=== PATIENT | male | born 1965 | race Hispanic/Latino ===

== ENCOUNTER 2017-11-16 22:17 | Inpatient (IN) | payer OTHER ==
[~2017-11-16] VITALS: Ht 185.4 cm; Wt 132.4 kg
[~2017-11-16 22:17] MED LIST: ALPR2TAB7 PO; ATOR10 PO; CARB100T52 PO; CELE100C PO; EXEN2PEN SQ; FENO145T37 PO; FENT75PAT TD; FLUO10CA21 PO; GABA-318 PO; HYDR-4060 PO; INSU100V12 SQ; LEVO500T2 PO; LISI-613 PO; METF10004 PO
[2017-11-16 22:56] LABS: BASOPHILS % (AUTO) 0.7 % (0.0-5.0); EOSINOPHILS % (AUTO) 0.1 % (0.0-8.0); HEMATOCRIT 38.6 % (42-54); LYMPHOCYTES % (AUTO) 17.5 % (21.0-51.0); MEAN CORPUSCULAR HGB CONC 34.8 g/dL (32.0-36.0); MONOCYTES % (AUTO) 8.1 % (3.0-13.0); NEUTROPHILS % (AUTO) 73.6 % (40.0-77.0); PLATELET COUNT (AUTO) 213 K/uL (130-400); RED BLOOD CELL COUNT(AUTO) 4.49 MIL/uL (4.50-6.20); RED CELL DISTRIBUTION WIDTH 13.3 % (11.0-15.5); WHITE BLOOD COUNT (AUTO) 15.4 K/uL (4.8-10.8)
[2017-11-16 23:01] LABS: APPEARANCE,URINE Clear (CLEAR); BILIRUBIN,URINE Negative (NEGATIVE); COLOR,URINE Yellow (YELLOW); GLUCOSE, URINE (UA) >=1000 mg/dL (NEGATIVE); KETONES,URINE Negative (NEGATIVE); LEUKOCYTE ESTERASE ,URINE Negative (NEGATIVE); NITRATE,URINE Negative (NEGATIVE); OCCULT BLOOD,URINE Negative (NEGATIVE); PROTEIN,URINE Negative (NEGATIVE)
[2017-11-16] MEDS ORDERED: SODIUM CHLORIDE 0.9% 1000ML 1,000 ML IV ONE (23:06)
[2017-11-16 23:11] LABS: BACTERIA,URINE None Seen /HPF (None Seen); MUCUS,URINE Few LPF (None Seen); RBC,URINE None Seen /HPF (0-1); SQUAMOUS EPITHELIAL CELL,UR Few /HPF (0-2); WBC,URINE None Seen /HPF (0-1)
[2017-11-16 23:22] LABS: ALBUMIN 3.4 g/dL (3.5-5.0); BILIRUBIN,TOTAL 0.9 mg/dL (0.2-1.0); CREATINE KINASE MB 0.8 ng/mL (0.5-3.6); CREATININE 1.2 mg/dL (0.5-1.5); CRP QUANTITATIVE 155.1 mg/L (0.00-9.0); POTASSIUM 4.3 mmol/L (3.5-5.1); TOTAL PROTEIN, SERUM 7.9 g/dL (6.0-8.3)
[2017-11-17 00:02] LABS: ERYTHROCYTE SEDIMENTATION RATE 31 MM/HR (0-15)
[2017-11-17] MEDS ORDERED: LEVOFLOXACIN 500 MG TABLET ONE (00:19)
[2017-11-17] MEDS ORDERED: ZOSYN 3.375GM+NS 50ML 50 ML IV ONE (00:20)
[2017-11-17] MEDS ORDERED: INSULIN HUMULIN R 100 UNIT/ML 3ML ONE (00:22)
[2017-11-17] MEDS ORDERED: POTASSIUM CHLORIDE 20MEQ/100ML 100 ML IV PRN (01:45)
[2017-11-17] MEDS ORDERED: POTASSIUM CHLORIDE 10% ELIXIR 20 MEQ/15 ML UDCUP PO PRN (01:45)
[2017-11-17] MEDS ORDERED: LIDOCAINE HCL-MPF 1% 2ML VIAL IVP PRN (01:45)
[2017-11-17] MEDS ORDERED: ACETAMINOPHEN-CODEINE 300/30MG TAB PO PRN (01:45)
[2017-11-17] MEDS ORDERED: POTASSIUM CHLORIDE 20 MEQ ERTAB PO PRN (01:45)
[2017-11-17] MEDS ORDERED: HYDRALAZINE HCL 20 MG/ML VIAL IV PRN (01:45)
[2017-11-17] MEDS ORDERED: LACTULOSE 20 GM/30 ML UDCUP PO PRN (01:45)
[2017-11-17] MEDS ORDERED: DEXTROSE 50%-WATER 50 ML DISP.SYRIN IV PRN (01:45)
[2017-11-17] MEDS ORDERED: DiphenhydrAMINE HCL 50 MG/ML VIAL IV PRN (01:45)
[2017-11-17] MEDS ORDERED: MORPHINE SULFATE 2 MG/ML 1ML SYG IV PRN (01:45)
[2017-11-17] MEDS ORDERED: GLUCAGON 1MG KIT 1 MG ML IM PRN (01:45)
[2017-11-17 03:17] VITALS: BP 143/92
[2017-11-17] MEDS: SODIUM CHLORIDE 0.9% 1000ML 1,000 ML IV SCH ×3 (04:03→18:29)
[2017-11-17] MEDS ORDERED: ACETAMINOPHEN 325 MG TAB PO PRN ×2 (04:30)
[2017-11-17] MEDS ORDERED: CLONIDINE HCL 0.1 MG TABLET PO PRN (04:30)
[2017-11-17] MEDS ORDERED: ZOSYN 3.375GM+NS 50ML 50 ML IV SCH (05:00)
[2017-11-17 06:43] LABS: BASOPHILS % (AUTO) 0.6 % (0.0-5.0); EOSINOPHILS % (AUTO) 0.5 % (0.0-8.0); HEMATOCRIT 37.9 % (42-54); LYMPHOCYTES % (AUTO) 24.6 % (21.0-51.0); MEAN CORPUSCULAR HEMOGLOBIN 29.9 pg (27.0-33.0); MEAN CORPUSCULAR HGB CONC 34.9 g/dL (32.0-36.0); MEAN CORPUSCULAR VOLUME 85.6 fL (79-99); MONOCYTES % (AUTO) 8.5 % (3.0-13.0); NEUTROPHILS % (AUTO) 65.8 % (40.0-77.0); PLATELET COUNT (AUTO) 173 K/uL (130-400); RED BLOOD CELL COUNT(AUTO) 4.43 MIL/uL (4.50-6.20); RED CELL DISTRIBUTION WIDTH 12.9 % (11.0-15.5); WHITE BLOOD COUNT (AUTO) 10.5 K/uL (4.8-10.8)
[2017-11-17 06:44] LABS: CREATININE 0.9 mg/dL (0.5-1.5); POTASSIUM 4.1 mmol/L (3.5-5.1)
[2017-11-17 07:09] LABS: HEMOGLOBIN A1C 11.5 % (4.0-6.0)
[2017-11-17] MEDS: INSULIN HUMULIN R 100 UNIT/ML 3ML SQ SCH ×4 (07:48→21:15)
[2017-11-17 08:00] VITALS: BP 108/66
[2017-11-17] MEDS ORDERED: ENOXAPARIN SODIUM 30 MG/0.3 ML SQ SCH (09:00)
[2017-11-17] MEDS: FAMOTIDINE 20MG TAB 20 MG TAB PO SCH ×2 (09:53→21:17)
[2017-11-17] MEDS: ZOSYN 3.375GM+NS 50ML 50 ML IV SCH ×3 (10:00→21:17)
[2017-11-17] MEDS: INSULIN GLARGINE 100 UNITS/ML 10 ML VIAL SQ SCH ×2 (10:03→21:07)
[2017-11-17 11:26] VITALS: BP 102/70
[2017-11-17 16:32] VITALS: BP 98/53
[2017-11-17] MEDS: ACETAMINOPHEN-CODEINE 300/30MG TAB PO PRN (17:06)
[2017-11-17 19:30] VITALS: BP 102/57
[2017-11-17 23:50] VITALS: BP 116/61
[2017-11-18 03:40] VITALS: BP 109/71
[2017-11-18 04:04] LABS: BASOPHILS % (AUTO) 0.6 % (0.0-5.0); EOSINOPHILS % (AUTO) 2.1 % (0.0-8.0); HEMATOCRIT 34.5 % (42-54); LYMPHOCYTES % (AUTO) 27.6 % (21.0-51.0); MEAN CORPUSCULAR HEMOGLOBIN 31.5 pg (27.0-33.0); MEAN CORPUSCULAR HGB CONC 36.8 g/dL (32.0-36.0); MEAN CORPUSCULAR VOLUME 85.6 fL (79-99); MONOCYTES % (AUTO) 8.6 % (3.0-13.0); NEUTROPHILS % (AUTO) 61.1 % (40.0-77.0); PLATELET COUNT (AUTO) 173 K/uL (130-400); RED BLOOD CELL COUNT(AUTO) 4.03 MIL/uL (4.50-6.20); RED CELL DISTRIBUTION WIDTH 13.4 % (11.0-15.5); WHITE BLOOD COUNT (AUTO) 6.8 K/uL (4.8-10.8)
[2017-11-18 04:21] LABS: CREATININE 0.8 mg/dL (0.5-1.5)
[2017-11-18] MEDS: ZOSYN 3.375GM+NS 50ML 50 ML IV SCH ×3 (04:26→20:59)
[2017-11-18] MEDS: INSULIN HUMULIN R 100 UNIT/ML 3ML SQ SCH ×4 (06:53→20:57)
[2017-11-18 08:00] VITALS: BP 150/86
[2017-11-18] MEDS ORDERED: MORPHINE SULFATE 4 MG/1ML SYG ONE (08:01)
[2017-11-18] MEDS: INSULIN GLARGINE 100 UNITS/ML 10 ML VIAL SQ SCH ×2 (08:06→20:58)
[2017-11-18] MEDS ORDERED: KETOROLAC TROMETHAMINE 15MG/ML IV PRN (09:00)
[2017-11-18] MEDS: FAMOTIDINE 20MG TAB 20 MG TAB PO SCH ×2 (10:17→20:58)
[2017-11-18] MEDS: ENOXAPARIN SODIUM 40 MG/0.4 ML SYRINGE SQ SCH (10:17)
[2017-11-18 11:40] VITALS: BP 111/60
[2017-11-18 16:00] VITALS: BP 114/83
[2017-11-18] MEDS: ACETAMINOPHEN-CODEINE 300/30MG TAB PO PRN (17:10)
[2017-11-18] MEDS ORDERED: MECL-111 PO (19:40)
[2017-11-18] MEDS ORDERED: LISI-617 PO (19:40)
[2017-11-18] MEDS ORDERED: FENT75PAT TD (19:40)
[2017-11-18] MEDS ORDERED: SIMV10TA6 PO (19:40)
[2017-11-18] MEDS ORDERED: HYDR-4068 PO (19:40)
[2017-11-18] MEDS ORDERED: FLUO40CA49 PO (19:40)
[2017-11-18] MEDS ORDERED: GABA-318 PO (19:40)
[2017-11-18] MEDS ORDERED: ALPR1TAB7 PO (19:40)
[2017-11-18 20:00] VITALS: BP 142/81
[2017-11-18] MEDS: MORPHINE SULFATE 4 MG/1ML SYG IVP PRN (22:57)
[2017-11-18 23:49] VITALS: BP 138/78
[2017-11-19] VITALS (15 sets, daily range): BP systolic 104–174; BP diastolic 60–94
[2017-11-19] MEDS ORDERED: HYDROCODONE/ACETAMINOPHEN 5/325 MG TAB PO PRN (03:15)
[2017-11-19] MEDS: ZOLPIDEM TARTRATE 5 MG TAB PO PRN ×2 (03:24→21:49)
[2017-11-19] MEDS: MORPHINE SULFATE 4 MG/1ML SYG IVP PRN (03:28)
[2017-11-19] MEDS: ZOSYN 3.375GM+NS 50ML 50 ML IV SCH ×3 (05:01→21:49)
[2017-11-19 05:23] LABS: BASOPHILS % (AUTO) 0.8 % (0.0-5.0); EOSINOPHILS % (AUTO) 3.4 % (0.0-8.0); HEMATOCRIT 34.5 % (42-54); MEAN CORPUSCULAR HEMOGLOBIN 29.8 pg (27.0-33.0); MONOCYTES % (AUTO) 9.1 % (3.0-13.0); NEUTROPHILS % (AUTO) 48.7 % (40.0-77.0); NUCLEATED RED BLOOD CELLS 0.1 % (0.0-0.19); PLATELET COUNT (AUTO) 204 K/uL (130-400); RED BLOOD CELL COUNT(AUTO) 4.06 MIL/uL (4.50-6.20); RED CELL DISTRIBUTION WIDTH 13.1 % (11.0-15.5); WHITE BLOOD COUNT (AUTO) 5.9 K/uL (4.8-10.8)
[2017-11-19 05:25] LABS: CREATININE 0.7 mg/dL (0.5-1.5); POTASSIUM 3.6 mmol/L (3.5-5.1)
[2017-11-19] MEDS: INSULIN HUMULIN R 100 UNIT/ML 3ML SQ SCH ×4 (06:56→21:32)
[2017-11-19] MEDS: INSULIN GLARGINE 100 UNITS/ML 10 ML VIAL SQ SCH ×2 (07:30→21:35)
[2017-11-19] MEDS: ENOXAPARIN SODIUM 40 MG/0.4 ML SYRINGE SQ SCH (09:00)
[2017-11-19] MEDS: ACETAMINOPHEN-CODEINE 300/30MG TAB PO PRN (11:01)
[2017-11-19] MEDS: FAMOTIDINE 20MG TAB 20 MG TAB PO SCH ×2 (11:02→21:49)
[2017-11-19] MEDS ORDERED: LIDOCAINE HCL 1% 20 ML VIAL ONE (14:45)
[2017-11-19] MEDS ORDERED: BUPIVACAINE/PF 0.5% 30ML VIAL ONE (14:46)
[2017-11-19] MEDS ORDERED: FENTANYL CITRATE PF 50 MCG/1 ML 2ML VIAL ONE (14:47)
[2017-11-19] MEDS ORDERED: MIDAZOLAM HCL 1 MG/ML 2ML VIAL ONE (14:47)
[2017-11-19] MEDS ORDERED: PROPOFOL 10 MG/ML 20ML VIAL IV ONE (14:49)
[2017-11-19] MEDS ORDERED: METOCLOPRAMIDE 10 MG/2 ML VIAL ONE (15:24)
[2017-11-20] VITALS (8 sets, daily range): BP systolic 121–154; BP diastolic 60–79
[2017-11-20] MEDS: INSULIN HUMULIN R 100 UNIT/ML 3ML SQ SCH ×4 (06:28→21:52)
[2017-11-20] MEDS: INSULIN GLARGINE 100 UNITS/ML 10 ML VIAL SQ SCH ×2 (06:54→21:53)
[2017-11-20] MEDS: ZOSYN 3.375GM+NS 50ML 50 ML IV SCH (06:54)
[2017-11-20] MEDS ORDERED: MEROPENEM 1GM IVPB PREMIXED 1 GM IV SCH (07:45)
[2017-11-20] MEDS ORDERED: VANCOMYCIN PROTOCOL PER PHARMACY IV SCH (07:45)
[2017-11-20] MEDS ORDERED: COMPOUND IV REFRIGERATED 1 EACH IVSOLN MISC PRN (08:45)
[2017-11-20] MEDS: FLUCONAZOLE 100 MG TAB PO SCH (09:44)
[2017-11-20] MEDS: VANCOMYCIN 2 GM in SODIUM CHLORIDE 0.9% 500ML 500 ML IV SCH ×3 (09:44→20:22)
[2017-11-20] MEDS: FAMOTIDINE 20MG TAB 20 MG TAB PO SCH ×2 (09:44→20:18)
[2017-11-20] MEDS: MEROPENEM 1 GM VIAL IVP SCH ×3 (09:44→20:22)
[2017-11-20] MEDS: ENOXAPARIN SODIUM 40 MG/0.4 ML SYRINGE SQ SCH (09:45)
[2017-11-20] MEDS: MORPHINE SULFATE 4 MG/1ML SYG IVP PRN ×2 (09:47→15:33)
[2017-11-20] MEDS: ZOLPIDEM TARTRATE 5 MG TAB PO PRN (21:58)
[2017-11-21] VITALS (8 sets, daily range): BP systolic 109–156; BP diastolic 62–88
[2017-11-21] MEDS ORDERED: HYDROMORPHONE 1 MG/1 ML AMP IVP PRN (03:45)
[2017-11-21] MEDS: MEROPENEM 1 GM VIAL IVP SCH ×3 (05:37→21:27)
[2017-11-21] MEDS: VANCOMYCIN 2 GM in SODIUM CHLORIDE 0.9% 500ML 500 ML IV SCH ×3 (06:39→21:27)
[2017-11-21] MEDS: INSULIN HUMULIN R 100 UNIT/ML 3ML SQ SCH ×4 (06:40→21:36)
[2017-11-21] MEDS: INSULIN GLARGINE 100 UNITS/ML 10 ML VIAL SQ SCH ×2 (06:45→21:37)
[2017-11-21] MEDS: FLUCONAZOLE 100 MG TAB PO SCH (09:04)
[2017-11-21] MEDS: FAMOTIDINE 20MG TAB 20 MG TAB PO SCH ×2 (09:04→21:26)
[2017-11-21] MEDS ORDERED: FENTANYL 75 MCG/HR PATCH TD SCH (09:15)
[2017-11-21] MEDS: ENOXAPARIN SODIUM 40 MG/0.4 ML SYRINGE SQ SCH (09:17)
[2017-11-21] MEDS: ATORVASTATIN CALCIUM 10 MG TABLET PO SCH (09:45)
[2017-11-21] MEDS: GABAPENTIN 300 MG CAPSULE PO SCH ×2 (15:19→21:27)
[2017-11-21] MEDS: ALPRAZOLAM 1 MG TAB PO SCH ×2 (15:19→21:26)
[2017-11-22 04:00] VITALS: BP 151/82
[2017-11-22 04:53] LABS: MEAN CORPUSCULAR HEMOGLOBIN 31.3 pg (27.0-33.0); MEAN CORPUSCULAR HGB CONC 36.7 g/dL (32.0-36.0); MEAN CORPUSCULAR VOLUME 85.2 fL (79-99); PLATELET COUNT (AUTO) 274 K/uL (130-400); RED BLOOD CELL COUNT(AUTO) 4.34 MIL/uL (4.50-6.20); RED CELL DISTRIBUTION WIDTH 13.2 % (11.0-15.5); WHITE BLOOD COUNT (AUTO) 6.9 K/uL (4.8-10.8)
[2017-11-22 05:14] LABS: CREATININE 0.7 mg/dL (0.5-1.5); POTASSIUM 3.6 mmol/L (3.5-5.1)
[2017-11-22] MEDS: INSULIN HUMULIN R 100 UNIT/ML 3ML SQ SCH ×4 (05:51→21:40)
[2017-11-22] MEDS: MEROPENEM 1 GM VIAL IVP SCH ×3 (05:57→21:34)
[2017-11-22] MEDS: VANCOMYCIN 2 GM in SODIUM CHLORIDE 0.9% 500ML 500 ML IV SCH ×3 (05:57→21:56)
[2017-11-22] MEDS: INSULIN GLARGINE 100 UNITS/ML 10 ML VIAL SQ SCH ×2 (06:04→21:42)
[2017-11-22 08:00] VITALS: BP 124/77
[2017-11-22] MEDS: FLUOXETINE HCL 20 MG CAPSULE PO SCH ×2 (08:34→21:34)
[2017-11-22] MEDS: ATORVASTATIN CALCIUM 10 MG TABLET PO SCH (08:34)
[2017-11-22] MEDS: GABAPENTIN 300 MG CAPSULE PO SCH ×3 (08:34→21:34)
[2017-11-22] MEDS: FAMOTIDINE 20MG TAB 20 MG TAB PO SCH ×2 (08:35→21:35)
[2017-11-22] MEDS: ALPRAZOLAM 1 MG TAB PO SCH ×3 (08:35→21:35)
[2017-11-22] MEDS: FLUCONAZOLE 100 MG TAB PO SCH (08:35)
[2017-11-22] MEDS: ENOXAPARIN SODIUM 40 MG/0.4 ML SYRINGE SQ SCH (08:35)
[2017-11-22 11:36] VITALS: BP 140/88
[2017-11-22 12:38] LABS: INR 0.95 (0.85-1.15); PARTIAL THROMBOPLASTIN TIME 28.5 SEC (26.3-35.5)
[2017-11-22] MEDS: LISINOPRIL 5 MG TABLET PO SCH (13:04)
[2017-11-22] MEDS: MORPHINE SULFATE 4 MG/1ML SYG IVP PRN (13:06)
[2017-11-22] MEDS: MECLIZINE HCL 25 MG TABLET PO SCH (13:06)
[2017-11-22 16:00] VITALS: BP 130/77
[2017-11-22 20:20] VITALS: BP 140/74
[2017-11-22 23:37] VITALS: BP 140/83
[2017-11-23 03:55] VITALS: BP 130/71
[2017-11-23] MEDS: MEROPENEM 1 GM VIAL IVP SCH ×2 (05:56→15:12)
[2017-11-23] MEDS: VANCOMYCIN 2 GM in SODIUM CHLORIDE 0.9% 500ML 500 ML IV SCH ×2 (05:57→15:11)
[2017-11-23] MEDS: INSULIN GLARGINE 100 UNITS/ML 10 ML VIAL SQ SCH (06:02)
[2017-11-23] MEDS: INSULIN HUMULIN R 100 UNIT/ML 3ML SQ SCH ×3 (06:07→16:48)
[2017-11-23] MEDS: MORPHINE SULFATE 4 MG/1ML SYG IVP PRN (06:08)
[2017-11-23 08:00] VITALS: BP 120/76
[2017-11-23] MEDS ORDERED: TRAM50TA2 PO (08:47)
[2017-11-23] MEDS: GABAPENTIN 300 MG CAPSULE PO SCH ×2 (10:03→15:12)
[2017-11-23] MEDS: ALPRAZOLAM 1 MG TAB PO SCH ×2 (10:04→15:12)
[2017-11-23] MEDS: LISINOPRIL 5 MG TABLET PO SCH (10:04)
[2017-11-23] MEDS: FLUCONAZOLE 100 MG TAB PO SCH (10:05)
[2017-11-23] MEDS: FLUOXETINE HCL 20 MG CAPSULE PO SCH (10:05)
[2017-11-23] MEDS: FAMOTIDINE 20MG TAB 20 MG TAB PO SCH (10:05)
[2017-11-23] MEDS: ATORVASTATIN CALCIUM 10 MG TABLET PO SCH (10:05)
[2017-11-23] MEDS: MECLIZINE HCL 25 MG TABLET PO SCH (10:05)
[2017-11-23] MEDS: ENOXAPARIN SODIUM 40 MG/0.4 ML SYRINGE SQ SCH (10:06)
[2017-11-23 12:00] VITALS: BP 125/78
[2017-11-23 16:00] VITALS: BP 149/78
== END 2017-11-23 18:55 | DRG 501 ==
LOC: EDH 22:17 → EDHIP 11-17 00:50 → 3BH 11-17 02:08
PROVIDERS: ADMIT Internal Medicine; ATTEND Internal Medicine
PROC: 0MBT0ZZ Excision of Left Foot Bursa and Ligament, Open Approach (ICD-10-PCS; principal; 2017-11-19 14:35)
DX: M71.072 Abscess of bursa, left ankle and foot (principal); L03.115 Cellulitis of right lower limb; E11.621 Type 2 diabetes mellitus with foot ulcer; E11.65 Type 2 diabetes mellitus with hyperglycemia; E66.01 Morbid (severe) obesity due to excess calories; L02.612 Cutaneous abscess of left foot; E87.1 Hypo-osmolality and hyponatremia; L03.116 Cellulitis of left lower limb; L97.529 Non-pressure chronic ulcer of other part of left foot with unspecified severity; J44.9 Chronic obstructive pulmonary disease, unspecified; E78.5 Hyperlipidemia, unspecified; I10 Essential (primary) hypertension; G89.29 Other chronic pain; B96.1 Klebsiella pneumoniae [K. pneumoniae] as the cause of diseases classified elsewhere; Z16.12 Extended spectrum beta lactamase (ESBL) resistance; B96.89 Other specified bacterial agents as the cause of diseases classified elsewhere; B95.1 Streptococcus, group B, as the cause of diseases classified elsewhere; E03.9 Hypothyroidism, unspecified; Z16.24 Resistance to multiple antibiotics; Z68.38 Body mass index [BMI] 38.0-38.9, adult; Z79.4 Long term (current) use of insulin; Z87.01 Personal history of pneumonia (recurrent); Z83.3 Family history of diabetes mellitus
CPT/HCPCS: 36415; 71045; 73630; 73718; 80048; 80053; 80202; 81001; 82550; 82553; 82948; 83036; 84484; 85025; 85027; 85610; 85651; 85730; 86140; 87040; 87070; 87076; 87077; 87186; 87205; 88304; 93005; 93925; 97039; A4218; C1894; J1650; J1815; J2185; J2250; J2270; J2543; J2704; J2765; J3010; J3370; J3490; J7030; J7040

== ENCOUNTER 2018-03-30 08:00 | Emergency (ER) | payer OTHER ==
[~2018-03-30 08:00] MED LIST changes: +ALPR1TAB7 PO; -ALPR2TAB7 PO; -ATOR10 PO; -CARB100T52 PO; -CELE100C PO; -EXEN2PEN SQ; -FENO145T37 PO; -FLUO10CA21 PO; +FLUO40CA49 PO; -HYDR-4060 PO; +HYDR-4068 PO; -INSU100V12 SQ; -LEVO500T2 PO; -LISI-613 PO; +LISI-617 PO; +MECL-111 PO; -METF10004 PO; +SIMV10TA6 PO; +TRAM50TA2 PO
[2018-03-30 08:31] LABS: BASOPHILS % (AUTO) 1.3 % (0.0-5.0); EOSINOPHILS % (AUTO) 3.6 % (0.0-8.0); HEMATOCRIT 41.3 % (42-54); LYMPHOCYTES % (AUTO) 27.7 % (21.0-51.0); MEAN CORPUSCULAR HEMOGLOBIN 30.6 pg (27.0-33.0); MEAN CORPUSCULAR HGB CONC 34.3 g/dL (32.0-36.0); MEAN CORPUSCULAR VOLUME 89.3 fL (79-99); MONOCYTES % (AUTO) 6.5 % (3.0-13.0); NEUTROPHILS % (AUTO) 60.9 % (40.0-77.0); NUCLEATED RED BLOOD CELLS 0.1 % (0.0-0.19); PLATELET COUNT (AUTO) 227 K/uL (130-400); RED BLOOD CELL COUNT(AUTO) 4.63 MIL/uL (4.50-6.20); RED CELL DISTRIBUTION WIDTH 14.3 % (11.0-15.5); WHITE BLOOD COUNT (AUTO) 7.4 K/uL (4.8-10.8)
[2018-03-30 08:40] LABS: CREATININE 1.3 mg/dL (0.5-1.5); POTASSIUM 4.1 mmol/L (3.5-5.1)
[2018-03-30 08:45] LABS: ALBUMIN 3.8 g/dL (3.5-5.0); BILIRUBIN,TOTAL 0.4 mg/dL (0.2-1.0)
[2018-03-30 08:50] LABS: CREATINE KINASE, TOTAL 80 U/L (21-232); MYOGLOBIN 34 ng/mL (10-92); TROPONIN I < 0.04 ng/mL (0.00-0.06)
[2018-03-30 10:05] LABS: APPEARANCE,URINE CLEAR (CLEAR); BILIRUBIN,URINE NEGATIVE (NEGATIVE); COLOR,URINE YELLOW (YELLOW); GLUCOSE, URINE (UA) >=1000 mg/dL (NEGATIVE); KETONES,URINE NEGATIVE (NEGATIVE); LEUKOCYTE ESTERASE ,URINE NEGATIVE (NEGATIVE); NITRATE,URINE NEGATIVE (NEGATIVE); OCCULT BLOOD,URINE NEGATIVE (NEGATIVE); PROTEIN,URINE TRACE (NEGATIVE); UROBILINOGEN,URINE 0.2 mg/dL (0.2-1.0)
[2018-03-30 10:06] LABS: BACTERIA,URINE Rare /HPF (None Seen); RBC,URINE None Seen /HPF (0-1); SQUAMOUS EPITHELIAL CELL,UR Rare /HPF (0-2); WBC,URINE 0-1 /HPF (0-1)
[2018-03-30 10:07] LABS: URIC ACID CRYSTALS,URINE Rare /LPF (None Seen)
[2018-03-30 10:11] LABS: AMPHET/METH SCREEN,URINE NEGATIVE (NEGATIVE); BARBITURATE SCREEN, URINE NEGATIVE (NEGATIVE); BENZODIAZEPINES SCREEN,URINE POSITIVE (NEGATIVE); CANNABINOID SCREEN,URINE NEGATIVE (NEGATIVE); COCAINE SCREEN,URINE NEGATIVE (NEGATIVE); OPIATE SCREEN,URINE POSITIVE (NEGATIVE); PHENCYCLIDINE SCREEN,URINE NEGATIVE (NEGATIVE)
== END 2018-03-30 12:23 | disposition home or self-care (01) ==
LOC: EDH 08:00
DX: R06.02 Shortness of breath (principal); R07.89 Other chest pain; E11.9 Type 2 diabetes mellitus without complications; E11.621 Type 2 diabetes mellitus with foot ulcer; I10 Essential (primary) hypertension; E78.5 Hyperlipidemia, unspecified; Z79.84 Long term (current) use of oral hypoglycemic drugs; Z79.82 Long term (current) use of aspirin; Z79.899 Other long term (current) drug therapy
CPT/HCPCS: 36415; 71045; 80053; 80305; 81001; 82550; 83874; 83880; 84484; 85025; 93005

== ENCOUNTER 2018-10-06 10:54 | Emergency (ER) | payer OTHER ==
[~2018-10-06 10:54] MED LIST changes: -GABA-318 PO; +GABA600T10 PO
[2018-10-06 11:40] LABS: RAPID GROUP A STREP NEGATIVE (NEGATIVE)
[2018-10-06] MEDS ORDERED: NEOMYCIN/POLYMYXIN/HC OTIC SUSP 10ML BOTTLE ONE (13:35)
== END 2018-10-06 14:15 | disposition home or self-care (01) ==
LOC: EDH 10:54
DX: H65.05 Acute serous otitis media, recurrent, left ear (principal); J06.9 Acute upper respiratory infection, unspecified; J44.9 Chronic obstructive pulmonary disease, unspecified; E11.9 Type 2 diabetes mellitus without complications; E78.5 Hyperlipidemia, unspecified; I10 Essential (primary) hypertension; Z79.4 Long term (current) use of insulin
CPT/HCPCS: 87804; 87880

== ENCOUNTER 2019-01-16 12:37 | Inpatient (IN) | payer OTHER | END 2019-01-26 18:35 | LOC: EDH 12:37 → EDHIP 14:37 → 3AH 20:54 | PROC: 0HBNXZZ Excision of Left Foot Skin, External Approach (ICD-10-PCS; principal; ~2019-01-16) | PROC: 047S3DZ Dilation of Left Posterior Tibial Artery with Intraluminal Device, Percutaneous Approach (ICD-10-PCS; ~2019-01-16) | PROC: B41G1ZZ Fluoroscopy of Left Lower Extremity Arteries using Low Osmolar Contrast (ICD-10-PCS; ~2019-01-16) | DX: A41.9 Sepsis, unspecified organism (principal); L02.612 Cutaneous abscess of left foot; L03.90 Cellulitis, unspecified; M86.171 Other acute osteomyelitis, right ankle and foot; L97.529 Non-pressure chronic ulcer of other part of left foot with unspecified severity; E11.40 Type 2 diabetes mellitus with diabetic neuropathy, unspecified; G89.4 Chronic pain syndrome; E11.51 Type 2 diabetes mellitus with diabetic peripheral angiopathy without gangrene; E11.621 Type 2 diabetes mellitus with foot ulcer; E78.5 Hyperlipidemia, unspecified; I10 Essential (primary) hypertension; E11.65 Type 2 diabetes mellitus with hyperglycemia; E11.622 Type 2 diabetes mellitus with other skin ulcer; Z74.01 Bed confinement status ==

== ENCOUNTER 2019-04-18 09:16 | Emergency (ER) | payer OTHER ==
[~2019-04-18 09:16] MED LIST changes: -SIMV10TA6 PO; +SIMV10TA97 PO; -TRAM50TA2 PO
[2019-04-18] MEDS ORDERED: ACETAMINOPHEN 325 MG TAB ONE (09:30)
== END 2019-04-18 11:44 | disposition home or self-care (01) ==
LOC: EDH 09:16
DX: S00.83XA Contusion of other part of head, initial encounter (principal); S70.02XA Contusion of left hip, initial encounter; J44.9 Chronic obstructive pulmonary disease, unspecified; E11.9 Type 2 diabetes mellitus without complications; E78.5 Hyperlipidemia, unspecified; I10 Essential (primary) hypertension; Z87.891 Personal history of nicotine dependence; Z79.4 Long term (current) use of insulin; Z79.899 Other long term (current) drug therapy; W18.39XA Other fall on same level, initial encounter; Y93.01 Activity, walking, marching and hiking; Y92.89 Other specified places as the place of occurrence of the external cause; Y99.8 Other external cause status
CPT/HCPCS: 70450; 72125; 73502; 93005

== ENCOUNTER 2019-06-22 17:46 | Emergency (ER) | payer OTHER ==
[2019-06-22 18:17] LABS: BASOPHILS % (AUTO) 1.1 % (0.0-5.0); EOSINOPHILS % (AUTO) 2.9 % (0.0-8.0); HEMATOCRIT 34.8 % (42-54); LYMPHOCYTES % (AUTO) 24.2 % (21.0-51.0); MEAN CORPUSCULAR HEMOGLOBIN 29.4 pg (27.0-33.0); MEAN CORPUSCULAR HGB CONC 35.3 g/dL (32.0-36.0); MEAN CORPUSCULAR VOLUME 83.3 fL (79-99); MONOCYTES % (AUTO) 10.1 % (3.0-13.0); NEUTROPHILS % (AUTO) 61.1 % (40.0-77.0); PLATELET COUNT (AUTO) 210 K/uL (130-400); RED BLOOD CELL COUNT(AUTO) 4.18 MIL/uL (4.50-6.20); WHITE BLOOD COUNT (AUTO) 6.5 K/uL (4.8-10.8)
[2019-06-22 18:22] LABS: POTASSIUM 4.3 mmol/L (3.5-5.1)
[2019-06-22 18:24] LABS: INR 0.92 (0.85-1.15); PARTIAL THROMBOPLASTIN TIME 26.6 SEC (26.3-35.5); PROTHROMBIN TIME 9.7 SEC (9.6-11.6)
[2019-06-22 18:26] LABS: ALBUMIN 3.5 g/dL (3.5-5.0); BILIRUBIN,TOTAL 0.3 mg/dL (0.2-1.0); TOTAL PROTEIN, SERUM 8.1 g/dL (6.0-8.3)
[2019-06-22] MEDS ORDERED: INSULIN HUMULIN R 100 UNIT/ML 3ML ONE (19:10)
[2019-06-22] MEDS ORDERED: ASPIRIN 81MG TAB.CHEW ONE (19:10)
[2019-06-22] MEDS ORDERED: SODIUM CHLORIDE 0.9% 1000ML 1,000 ML IV ONE (19:12)
== END 2019-06-22 20:15 | disposition home or self-care (01) ==
LOC: EDH 17:46
DX: E11.65 Type 2 diabetes mellitus with hyperglycemia (principal); L97.519 Non-pressure chronic ulcer of other part of right foot with unspecified severity; R20.2 Paresthesia of skin; J44.9 Chronic obstructive pulmonary disease, unspecified
CPT/HCPCS: 36415; 70450; 71045; 80053; 82550; 82948 ×2; 83721; 84484; 85025; 85610; 85730; 93005; 96361; 96374; 99285; J1815; J7030

== ENCOUNTER 2019-09-18 20:32 | Inpatient (IN) | payer OTHER ==
[~2019-09-18] VITALS: Ht 185.4 cm; Wt 139.3 kg
[~2019-09-18 20:32] MED LIST changes: -ALPR1TAB7 PO; -MECL-111 PO; +MECL-160 PO
[2019-09-18 21:10] LABS: BASOPHILS % (AUTO) 0.7 % (0.0-5.0); EOSINOPHILS % (AUTO) 2.2 % (0.0-8.0); LYMPHOCYTES % (AUTO) 13.8 % (21.0-51.0); MEAN CORPUSCULAR HEMOGLOBIN 28.4 pg (27.0-33.0); MEAN CORPUSCULAR HGB CONC 33.7 g/dL (32.0-36.0); MEAN CORPUSCULAR VOLUME 84.1 fL (79-99); PLATELET COUNT (AUTO) 291 K/uL (130-400); RED BLOOD CELL COUNT(AUTO) 4.16 MIL/uL (4.50-6.20); RED CELL DISTRIBUTION WIDTH 12.6 % (11.0-15.5); WHITE BLOOD COUNT (AUTO) 6.9 K/uL (4.8-10.8)
[2019-09-18 21:20] LABS: INR 0.89 (0.85-1.15); PARTIAL THROMBOPLASTIN TIME 28.7 SEC (26.3-35.5); PROTHROMBIN TIME 9.7 SEC (9.6-11.6)
[2019-09-18 21:39] LABS: ALANINE AMINOTRANSFERASE 18 U/L (12-78); ALBUMIN 3.3 g/dL (3.5-5.0); ASPARTATE AMINOTRANSFERASE 22 U/L (10-37); BILIRUBIN,TOTAL 0.3 mg/dL (0.2-1.0); CARBON DIOXIDE 27 mmol/L (21-32); CHLORIDE 94 mmol/L (101-111); CREATINE KINASE, TOTAL 59 U/L (21-232); CREATININE 1.7 mg/dL (0.5-1.5); GLOMERULAR FILTR. RATE CALC 45 mL/min (>60); MYOGLOBIN 22 ng/mL (10-92); POTASSIUM 4.8 mmol/L (3.5-5.1); SODIUM SERUM 130 mmol/L (136-145); TROPONIN I < 0.04 ng/mL (0.00-0.06); UREA NITROGEN, BLOOD 26 mg/dL (7-18)
[2019-09-18 21:46] LABS: GLUCOSE,RANDOM 478 mg/dL (70-105)
[2019-09-18] MEDS ORDERED: SODIUM CHLORIDE 0.9% 1000ML 4,000 ML IV ONE (21:52)
[2019-09-18] MEDS ORDERED: ONDANSETRON HCL 4 MG/2 ML VIAL ONE (21:59)
[2019-09-18] MEDS ORDERED: MORPHINE SULFATE 2 MG/ML 1ML SYG ONE (21:59)
[2019-09-18] MEDS ORDERED: MORPHINE SULFATE 4 MG/1ML SYG ONE ×2 (21:59→22:34)
[2019-09-18 22:17] LABS: APPEARANCE,URINE Clear (CLEAR); BILIRUBIN,URINE Negative (NEGATIVE); COLOR,URINE Yellow (YELLOW); GLUCOSE, URINE (UA) >=1000 mg/dL (NEGATIVE); KETONES,URINE Negative (NEGATIVE); LEUKOCYTE ESTERASE ,URINE Negative (NEGATIVE); NITRATE,URINE Negative (NEGATIVE); OCCULT BLOOD,URINE Negative (NEGATIVE); PH,URINE 6.5 (5.0-8.0); PROTEIN,URINE Trace mg/dL (NEGATIVE); UROBILINOGEN,URINE 0.2 mg/dL (0.2-1.0)
[2019-09-18 22:25] LABS: BACTERIA,URINE Few /HPF (None Seen); MUCUS,URINE Few LPF (None Seen); SQUAMOUS EPITHELIAL CELL,UR 0-2 /HPF (0-2)
[2019-09-18] MEDS ORDERED: INSULIN HUMULIN R 100 UNIT/ML 3ML ONE (22:33)
[2019-09-18] MEDS ORDERED: ACETAMINOPHEN EXTRA STRENGTH 500 MG TABLET ONE (22:34)
[2019-09-18] MEDS ORDERED: VANCOMYCIN 1GM+NS 250ML 250 ML IV ONE (22:34)
[2019-09-18] MEDS ORDERED: ZOSYN 3.375GM+NS 50ML 50 ML IV ONE (22:34)
[2019-09-18] MEDS ORDERED: DEXTROSE 50%-WATER 50 ML DISP.SYRIN IV PRN (23:45)
[2019-09-18] MEDS: SODIUM CHLORIDE 0.9% 1000ML 1,000 ML IV SCH (23:45)
[2019-09-18] MEDS ORDERED: ONDANSETRON HCL 4 MG/2 ML VIAL IVP PRN (23:45)
[2019-09-18] MEDS ORDERED: ACETAMINOPHEN 325 MG TAB PO PRN (23:45)
[2019-09-18] MEDS ORDERED: GLUCAGON 1MG KIT 1 MG ML IM PRN (23:45)
[2019-09-18] MEDS ORDERED: HYDROCODONE/ACETAMINOPHEN 5/325 MG TAB PO PRN (23:45)
[2019-09-19] MEDS ORDERED: CLINDAMYCIN 600MG IN 0.9% SOD 50 ML IV SCH
[2019-09-19] MEDS ORDERED: CLINDAMYCIN 600 MG/D5% WATER 50 ML IV ONE ×2 (01:01→08:38)
[2019-09-19] MEDS ORDERED: SODIUM CHLORIDE 0.9% 1000ML 1,000 ML IV ONE ×2 (01:05→10:51)
[2019-09-19 06:01] LABS: BASOPHILS % (AUTO) 0.6 % (0.0-5.0); EOSINOPHILS % (AUTO) 2.9 % (0.0-8.0); HEMATOCRIT 31.6 % (42-54); LYMPHOCYTES % (AUTO) 14.4 % (21.0-51.0); MEAN CORPUSCULAR HEMOGLOBIN 27.9 pg (27.0-33.0); MEAN CORPUSCULAR HGB CONC 32.6 g/dL (32.0-36.0); MEAN CORPUSCULAR VOLUME 85.6 fL (79-99); MONOCYTES % (AUTO) 9.4 % (3.0-13.0); NEUTROPHILS % (AUTO) 72.1 % (40.0-77.0); PLATELET COUNT (AUTO) 232 K/uL (130-400); RED BLOOD CELL COUNT(AUTO) 3.69 MIL/uL (4.50-6.20); RED CELL DISTRIBUTION WIDTH 12.5 % (11.0-15.5); WHITE BLOOD COUNT (AUTO) 4.8 K/uL (4.8-10.8)
[2019-09-19 06:20] LABS: CREATININE 1.2 mg/dL (0.5-1.5); POTASSIUM 4.3 mmol/L (3.5-5.1)
[2019-09-19 06:21] LABS: ALBUMIN 2.6 g/dL (3.5-5.0); BILIRUBIN,TOTAL 0.2 mg/dL (0.2-1.0); MAGNESIUM 1.8 mg/dL (1.80-2.40); PHOSPHORUS 3.4 mg/dL (2.5-4.9); TOTAL PROTEIN, SERUM 7.4 g/dL (6.0-8.3)
[2019-09-19] MEDS ORDERED: INSULIN HUMULIN R 100 UNIT/ML 3ML ONE (07:19)
[2019-09-19] MEDS: INSULIN R PO SS1 SQ SCH ×4 (07:30→21:46)
[2019-09-19] MEDS: HEPARIN SODIUM 5000UNIT/ML 1ML VIAL SQ SCH ×2 (07:30→19:30)
[2019-09-19] MEDS ORDERED: NITROGLYCERIN 0.4 MG SL TAB SL PRN (07:45)
[2019-09-19] MEDS ORDERED: LACTULOSE 20 GM/30 ML UDCUP PO PRN (07:45)
[2019-09-19] MEDS ORDERED: DiphenhydrAMINE HCL 50 MG/ML VIAL IV PRN (07:45)
[2019-09-19] MEDS ORDERED: GUAIFENESIN-DM 200/20 MG 10 ML PO PRN (07:45)
[2019-09-19] MEDS ORDERED: HYDRALAZINE HCL 20 MG/ML VIAL IV PRN (07:45)
[2019-09-19] MEDS: PANTOPRAZOLE SODIUM 40 MG TABLET.DR PO SCH (09:00)
[2019-09-19] MEDS: SODIUM CHLORIDE 0.9% 1000ML 1,000 ML IV SCH ×2 (09:45→21:53)
[2019-09-19] MEDS ORDERED: ONDANSETRON HCL 4 MG/2 ML VIAL ONE (10:58)
[2019-09-19] MEDS ORDERED: HYDROMORPHONE 1 MG/1 ML AMP ONE ×2 (10:58→14:55)
[2019-09-19] MEDS ORDERED: ACETAMINOPHEN 325 MG TAB ONE (12:48)
--- NOTE | 2019-09-19 14:38 | NUR ---
INITIAL SW met with patient. Patient reports he lives with spouse, Suzan Corona, [phone]. No home services or DME. Patient is able to complete ADL's independently and drives. PCP is Dr. Cecelia Garcia. Pharmacy is [facility] in [place]. DCP is home. Addendum: 09/19/19 at 1440 by CECELIA MORRIS SS Amended: Links added.
[2019-09-19] MEDS: METRONIDAZOLE 500MG/100ML BAG 100 ML IV SCH (16:00)
[2019-09-19] MEDS ORDERED: HEPARIN SODIUM 5000UNIT/ML 1ML VIAL ONE (17:34)
[2019-09-19 18:55] VITALS: BP 117/59
[2019-09-19] MEDS ORDERED: TRAZ150T79 PO (19:21)
[2019-09-19] MEDS ORDERED: ATOR40TA71 PO (19:22)
[2019-09-19] MEDS ORDERED: PANT40TA25 PO (19:23)
[2019-09-19] MEDS ORDERED: VANC125C6 PO (19:27)
[2019-09-19] MEDS ORDERED: CELE100 PO (19:29)
[2019-09-19 20:00] VITALS: BP 109/63
[2019-09-19] MEDS: HYDROMORPHONE HCL 0.5 MG/0.5 ML ML IVP PRN (21:44)
[2019-09-20] VITALS: BP 100/61
[2019-09-20] MEDS: METRONIDAZOLE 500MG/100ML BAG 100 ML IV SCH ×2 (00:14→08:06)
[2019-09-20 04:00] VITALS: BP 106/60
[2019-09-20 05:24] LABS: HEMATOCRIT 30.5 % (42-54); MEAN CORPUSCULAR HEMOGLOBIN 27.6 pg (27.0-33.0); MEAN CORPUSCULAR HGB CONC 32.5 g/dL (32.0-36.0); PLATELET COUNT (AUTO) 220 K/uL (130-400); RED BLOOD CELL COUNT(AUTO) 3.59 MIL/uL (4.50-6.20); RED CELL DISTRIBUTION WIDTH 12.5 % (11.0-15.5); WHITE BLOOD COUNT (AUTO) 4.4 K/uL (4.8-10.8)
[2019-09-20 05:31] LABS: HEMOGLOBIN A1C 9.8 % (4.0-6.0)
[2019-09-20 05:59] LABS: POTASSIUM 4.2 mmol/L (3.5-5.1)
[2019-09-20] MEDS: SODIUM CHLORIDE 0.9% 1000ML 1,000 ML IV SCH ×3 (06:24→20:24)
[2019-09-20] MEDS: INSULIN R PO SS1 SQ SCH ×4 (06:25→21:11)
[2019-09-20] MEDS: ALPRAZOLAM 1 MG TAB PO SCH ×2 (06:27→13:44)
[2019-09-20] MEDS: GABAPENTIN 300 MG CAPSULE PO SCH ×2 (06:27→13:44)
[2019-09-20] MEDS: HEPARIN SODIUM 5000UNIT/ML 1ML VIAL SQ SCH ×2 (06:28→18:42)
[2019-09-20] MEDS: LISINOPRIL 5 MG TABLET PO SCH (08:05)
[2019-09-20] MEDS: MECLIZINE HCL 25 MG TABLET PO SCH (08:05)
[2019-09-20] MEDS: PANTOPRAZOLE SODIUM 40 MG TABLET.DR PO SCH (08:06)
[2019-09-20] MEDS: FLUOXETINE HCL 20 MG CAPSULE PO SCH ×2 (08:06→20:25)
[2019-09-20 08:18] VITALS: BP 118/71
--- NOTE | 2019-09-20 09:18 | NUR ---
NOTIFIED K LAVELLE LEVEL VIAL SETTER FOR BENCHMARK OF BLOOD CULTURE RESULTS GRAM POSITIVE COCCI IN CLUSTERS
[2019-09-20] MEDS: CELECOXIB 100 MG CAP PO SCH ×2 (09:38→20:25)
[2019-09-20 11:52] VITALS: BP 95/49
--- NOTE | 2019-09-20 12:21 | NUR ---
DR GARCIA AND Allan VALDERRAMA NOTICED OF MRI RESULTS BY PHONE AND Allan VALDERRAMA MACHINE TAPER ORDERED TO CONSULT DR BYERS AND TO PLACE ORDER FOR VANCOMYCIN PER PHARMACY DOSING
[2019-09-20] MEDS ORDERED: VANCOMYCIN PROTOCOL PER PHARMACY IV SCH (12:30)
--- NOTE | 2019-09-20 12:42 | NUR ---
PHYSICIAN ROUNDS DR GARCIA AND Allan VALDERRAMA ROUNDED ON PATIENT ORDERS RECEIVED FOR BLOOD CULTURE X [address]
[2019-09-20] MEDS ORDERED: VANCOMYCIN 2 GM in SODIUM CHLORIDE 0.9% 500ML 500 ML IV ONE (13:15)
[2019-09-20] MEDS ORDERED: COMPOUND IV REFRIGERATED 1 EACH IVSOLN MISC PRN (13:15)
[2019-09-20] MEDS ORDERED: OXCA600T18 PO (14:14)
[2019-09-20] MEDS ORDERED: ALPRAZOLAM 1 MG TAB PO PRN (14:30)
--- NOTE | 2019-09-20 14:42 | NUR ---
3343 patient signed IM Letter, I faxed IM Letter to [phone] and placed in chart under consent tab
[2019-09-20 16:04] VITALS: BP 103/64
[2019-09-20] MEDS: CEFTAZIDIME PENTAHYDRATE 1 GM/VIAL IVP SCH (17:03)
[2019-09-20] MEDS ORDERED: ALPR1TAB7 PO (19:40)
[2019-09-20 20:00] VITALS: BP 137/77
--- NOTE | 2019-09-20 20:00 | NUR ---
PATIENT RECEIVED IN BED, AAOX3. NO ACUTE DISTRESS NOTED. POC DISCUSSED WITH PATIENT. TELEMETRY MONITORING IN PROGRESS SR 81. WILL CONT TO MONITOR. CALL GIRALDO IS AT BEDSIDE. DRESSING TO LEFT FOOT D/I.
[2019-09-20] MEDS: OXCARBAZEPINE 300 MG TAB PO SCH (20:25)
[2019-09-20] MEDS: ATORVASTATIN CALCIUM 40 MG TABLET PO SCH (20:25)
[2019-09-20] MEDS: TRAZODONE HCL 50 MG TAB PO SCH (20:25)
[2019-09-20] MEDS: VANCOMYCIN 1.5 GM in SODIUM CHLORIDE 0.9% 250 ML IV SCH (20:26)
[2019-09-21] VITALS (7 sets, daily range): BP systolic 99–168; BP diastolic 56–89
[2019-09-21] MEDS: CEFTAZIDIME PENTAHYDRATE 1 GM/VIAL IVP SCH ×4 (00:52→21:50)
[2019-09-21] MEDS: HEPARIN SODIUM 5000UNIT/ML 1ML VIAL SQ SCH ×2 (06:32→20:58)
[2019-09-21] MEDS: INSULIN R PO SS1 SQ SCH ×4 (06:33→21:01)
[2019-09-21] MEDS: VANCOMYCIN 1.5 GM in SODIUM CHLORIDE 0.9% 250 ML IV SCH ×3 (08:21→21:50)
[2019-09-21] MEDS: FLUOXETINE HCL 20 MG CAPSULE PO SCH ×2 (08:22→20:54)
[2019-09-21] MEDS: PANTOPRAZOLE SODIUM 40 MG TABLET.DR PO SCH (08:22)
[2019-09-21] MEDS: OXCARBAZEPINE 300 MG TAB PO SCH ×2 (08:22→20:55)
[2019-09-21] MEDS: MECLIZINE HCL 25 MG TABLET PO SCH (08:22)
[2019-09-21] MEDS: LISINOPRIL 5 MG TABLET PO SCH (08:22)
[2019-09-21 08:39] LABS: CREATININE 0.9 mg/dL (0.5-1.5)
[2019-09-21] MEDS: CELECOXIB 100 MG CAP PO SCH ×2 (09:00→20:55)
[2019-09-21] MEDS: HYDROMORPHONE HCL 0.5 MG/0.5 ML ML IVP PRN ×3 (10:46→23:35)
[2019-09-21] MEDS: SODIUM CHLORIDE 0.9% 1000ML 1,000 ML IV SCH ×2 (14:27→21:50)
--- NOTE | 2019-09-21 17:14 | NUR ---
CM NOTE PER DR. BYERS, POSSIBLE DC HOME WITH PO ANTIBIOTICS AND WOUND CARE. INFORMED COLLEEN VALDERRAMA PASTE MAKER OF DR. BYERS RECOMMENDATIONS. OK TO CANCEL SNF PLAN AND NEW ORDER FOR HH WITH WOUND CARE AND PT. MEET WITH PATIENT IN ROOM, PER PATIENT, HAS BEEN DOING WOUND CARE FOR THE PAST 2 YRS. OPEN TO HH WITH WOUND CARE AND PT. ZACHARIAH SIGNED FOR HH IN NETWORK, PER DR. GARCIA, WOUND CARE WILL BE BETADINE CAST DAILY. PENDING FURTHER RECOMMENDATIONS FOR DC PLANNING.
[2019-09-21] MEDS: ATORVASTATIN CALCIUM 40 MG TABLET PO SCH (20:55)
[2019-09-21] MEDS: TRAZODONE HCL 50 MG TAB PO SCH (20:55)
[2019-09-22 04:00] VITALS: BP 130/71
--- NOTE | 2019-09-22 04:00 | NUR ---
ASSUME CARE ASSUME CARE FOR PT AT THIS TIME. PT CALM IN BED. NO S/S OF DISTRESS.
[2019-09-22 04:56] LABS: HEMATOCRIT 29.9 % (42-54); MEAN CORPUSCULAR HEMOGLOBIN 27.5 pg (27.0-33.0); MEAN CORPUSCULAR HGB CONC 33.4 g/dL (32.0-36.0); MEAN CORPUSCULAR VOLUME 82.4 fL (79-99); PLATELET COUNT (AUTO) 247 K/uL (130-400); RED BLOOD CELL COUNT(AUTO) 3.63 MIL/uL (4.50-6.20); RED CELL DISTRIBUTION WIDTH 12.5 % (11.0-15.5); WHITE BLOOD COUNT (AUTO) 5.2 K/uL (4.8-10.8)
[2019-09-22] MEDS: CEFTAZIDIME PENTAHYDRATE 1 GM/VIAL IVP SCH (05:14)
[2019-09-22] MEDS: VANCOMYCIN 1.5 GM in SODIUM CHLORIDE 0.9% 250 ML IV SCH (05:15)
[2019-09-22 05:19] LABS: POTASSIUM 3.5 mmol/L (3.5-5.1)
[2019-09-22] MEDS: HEPARIN SODIUM 5000UNIT/ML 1ML VIAL SQ SCH (06:32)
[2019-09-22] MEDS: INSULIN R PO SS1 SQ SCH (06:33)
[2019-09-22] MEDS: HYDROMORPHONE HCL 0.5 MG/0.5 ML ML IVP PRN ×2 (07:03→11:53)
[2019-09-22 08:00] VITALS: BP 131/78
[2019-09-22] MEDS: SODIUM CHLORIDE 0.9% 1000ML 1,000 ML IV SCH (08:12)
[2019-09-22] MEDS ORDERED: LEVO500T2 PO (09:32)
[2019-09-22] MEDS: PANTOPRAZOLE SODIUM 40 MG TABLET.DR PO SCH (09:51)
[2019-09-22] MEDS: MECLIZINE HCL 25 MG TABLET PO SCH (09:51)
[2019-09-22] MEDS: CELECOXIB 100 MG CAP PO SCH (09:51)
[2019-09-22] MEDS: OXCARBAZEPINE 300 MG TAB PO SCH (09:51)
[2019-09-22] MEDS: FLUOXETINE HCL 20 MG CAPSULE PO SCH (09:51)
[2019-09-22] MEDS: LISINOPRIL 5 MG TABLET PO SCH (09:52)
== END 2019-09-22 14:30 | disposition home or self-care (01) | DRG 463 ==
LOC: EDH 20:32 → INTOOBSV 22:50 → EDHIP 22:50 → OBSVTOIN 22:50 → 3AH 09-19 18:00
PROVIDERS: ADMIT Internal Medicine Critical Care Medicine; ATTEND Internal Medicine Critical Care Medicine
PROC: 0JBR0ZZ Excision of Left Foot Subcutaneous Tissue and Fascia, Open Approach (ICD-10-PCS; principal; 2019-09-20)
DX: T87.44 Infection of amputation stump, left lower extremity (principal); E43 Unspecified severe protein-calorie malnutrition; L03.116 Cellulitis of left lower limb; N17.9 Acute kidney failure, unspecified; E87.1 Hypo-osmolality and hyponatremia; Z68.41 Body mass index [BMI] 40.0-44.9, adult; R78.81 Bacteremia; Z16.24 Resistance to multiple antibiotics; M86.8X7 Other osteomyelitis, ankle and foot; D63.8 Anemia in other chronic diseases classified elsewhere; N18.9 Chronic kidney disease, unspecified; E11.22 Type 2 diabetes mellitus with diabetic chronic kidney disease; E11.69 Type 2 diabetes mellitus with other specified complication; E11.51 Type 2 diabetes mellitus with diabetic peripheral angiopathy without gangrene; E11.621 Type 2 diabetes mellitus with foot ulcer; E66.01 Morbid (severe) obesity due to excess calories; E78.5 Hyperlipidemia, unspecified; F32.9 Major depressive disorder, single episode, unspecified; F41.9 Anxiety disorder, unspecified; I12.9 Hypertensive chronic kidney disease with stage 1 through stage 4 chronic kidney disease, or unspecified chronic kidney disease; J44.9 Chronic obstructive pulmonary disease, unspecified; B96.5 Pseudomonas (aeruginosa) (mallei) (pseudomallei) as the cause of diseases classified elsewhere; B95.61 Methicillin susceptible Staphylococcus aureus infection as the cause of diseases classified elsewhere; L97.529 Non-pressure chronic ulcer of other part of left foot with unspecified severity; Y83.5 Amputation of limb(s) as the cause of abnormal reaction of the patient, or of later complication, without mention of misadventure at the time of the procedure; Y92.89 Other specified places as the place of occurrence of the external cause; Z91.19 Patient's noncompliance with other medical treatment and regimen; Z88.8 Allergy status to other drugs, medicaments and biological substances
CPT/HCPCS: 36415; 71045; 73630; 73718; 80048; 80053; 80202; 81001; 82550; 82948; 83036; 83605; 83735; 83874; 84100; 84145; 84484; 85025; 85027; 85610; 85651; 85730; 86140; 87040; 87070; 87076; 87077; 87088; 87186; 93005; 93925; G0378; J0713; J1170; J1644; J1815; J2270; J2405; J2543; J3370; J3490; J7030; J7040

== ENCOUNTER 2019-11-28 14:17 | Inpatient (IN) | payer OTHER ==
[~2019-11-28] VITALS: Ht 185.4 cm; Wt 123.5 kg
[~2019-11-28 14:17] MED LIST changes: +ALPR1TAB7 PO; +ATOR40TA71 PO; +CELE100 PO; -FENT75PAT TD; -GABA600T10 PO; +LEVO500T2 PO; +OXCA600T18 PO; +PANT40TA55 PO; -SIMV10TA97 PO
[2019-11-28] MEDS ORDERED: GLUCAGON 1MG KIT 1 MG ML IM PRN (15:30)
[2019-11-28] MEDS ORDERED: VANCOMYCIN PROTOCOL PER PHARMACY IV SCH (15:30)
[2019-11-28] MEDS ORDERED: ONDANSETRON HCL 4 MG/2 ML VIAL IVP PRN (15:30)
[2019-11-28] MEDS ORDERED: DEXTROSE 50%-WATER 50 ML DISP.SYRIN IV PRN (15:30)
[2019-11-28] MEDS ORDERED: VANCOMYCIN 1GM+NS 250ML 250 ML IV SCH (15:30)
[2019-11-28 15:43] LABS: BASOPHILS % (AUTO) 1.3 % (0.0-5.0); HEMATOCRIT 37.1 % (42-54); LYMPHOCYTES % (AUTO) 29.7 % (21.0-51.0); MEAN CORPUSCULAR HEMOGLOBIN 28.3 pg (27.0-33.0); MEAN CORPUSCULAR HGB CONC 34.2 g/dL (32.0-36.0); MEAN CORPUSCULAR VOLUME 82.6 fL (79-99); MONOCYTES % (AUTO) 9.7 % (3.0-13.0); PLATELET COUNT (AUTO) 296 K/uL (130-400); RED BLOOD CELL COUNT(AUTO) 4.49 MIL/uL (4.50-6.20); RED CELL DISTRIBUTION WIDTH 14.2 % (11.0-15.5)
[2019-11-28 15:53] LABS: POTASSIUM 3.5 mmol/L (3.5-5.1)
[2019-11-28] MEDS ORDERED: ONDANSETRON HCL 4 MG/2 ML VIAL ONE (15:54)
[2019-11-28] MEDS ORDERED: MORPHINE SULFATE 2 MG/ML 1ML SYG ONE ×2 (15:55→20:35)
[2019-11-28] MEDS ORDERED: VANCOMYCIN 1GM+NS 250ML 250 ML IV ONE (15:55)
[2019-11-28 15:58] LABS: ALBUMIN 2.8 g/dL (3.5-5.0); BILIRUBIN,TOTAL 0.2 mg/dL (0.2-1.0); TOTAL PROTEIN, SERUM 7.3 g/dL (6.0-8.3)
[2019-11-28] MEDS: INSULIN R PO SS1 SQ SCH ×2 (16:30→20:46)
[2019-11-28] MEDS ORDERED: COMPOUND IV REFRIGERATED 1 EACH IVSOLN MISC PRN (16:45)
[2019-11-28] MEDS: VANCOMYCIN 1.5 GM in SODIUM CHLORIDE 0.9% 250 ML IV SCH (17:00)
[2019-11-28] MEDS ORDERED: INSULIN HUMULIN R 100 UNIT/ML 3ML ONE (18:07)
--- NOTE | 2019-11-28 20:22 | NUR ---
DR. GARCIA SAW PT WOUND CAR DONE BY PT
[2019-11-28] MEDS: MORPHINE SULFATE 2 MG/ML 1ML SYG IVP PRN (20:38)
[2019-11-28] MEDS ORDERED: HYDRALAZINE HCL 20 MG/ML VIAL ONE (20:49)
--- NOTE | 2019-11-28 20:52 | NUR ---
HYDRALAZINE 10MG IV GIVEN BP 180/93 PT DENIES SOB OR CHEST PAIN
[2019-11-28] MEDS ORDERED: HYDRALAZINE HCL 20 MG/ML VIAL IV PRN (21:00)
--- NOTE | 2019-11-28 21:50 | NUR ---
ADMISSION NOTE ADMIT TO ROOM 317 VIA STRETCHER FROM ER. PATIENT, AWAKE, ALERT, OX3, LEFT FOOT DRESSING INTACT, TEACH PATIENT PLAN OF CARE AND EXPECTED OUTCOME, PATIENT VERBALIZES UNDERSTANDING VIA TEACH BACK
[2019-11-28] MEDS ORDERED: LISI10TA7 PO (22:15)
[2019-11-28] MEDS ORDERED: TRAZ300T2 PO (22:15)
[2019-11-28] MEDS ORDERED: CEFU500T67 PO (22:15)
[2019-11-28] MEDS ORDERED: METF-446 PO (22:15)
[2019-11-28] MEDS ORDERED: LIRA0.6P SQ (22:15)
[2019-11-28 22:30] VITALS: BP 132/98
--- NOTE | 2019-11-28 23:15 | NUR ---
CX REMOVE DRESSING LEFT FOOT, OPEN ULCER LEFT PLANTAR , NO DRAINAGE SEEN , WOUND CULTURE OBTAINED, CLEANSE WITH NS, APPLY 4X4, KERLIX ROLL AND TAPE, TOLERATED WELL
[2019-11-29 03:00] VITALS: BP 168/98
[2019-11-29] MEDS ORDERED: VANCOMYCIN 1GM+NS 250ML 500 ML IV ONE (03:05)
[2019-11-29] MEDS: MORPHINE SULFATE 2 MG/ML 1ML SYG IVP PRN ×3 (03:13→23:27)
[2019-11-29] MEDS: VANCOMYCIN 1.5 GM in SODIUM CHLORIDE 0.9% 250 ML IV SCH ×2 (03:14→17:05)
[2019-11-29 05:42] LABS: HEMATOCRIT 37.6 % (42-54); MEAN CORPUSCULAR HEMOGLOBIN 27.7 pg (27.0-33.0); MEAN CORPUSCULAR HGB CONC 33.8 g/dL (32.0-36.0); MEAN CORPUSCULAR VOLUME 82.1 fL (79-99); RED BLOOD CELL COUNT(AUTO) 4.58 MIL/uL (4.50-6.20); RED CELL DISTRIBUTION WIDTH 14.3 % (11.0-15.5); WHITE BLOOD COUNT (AUTO) 5.8 K/uL (4.8-10.8)
[2019-11-29] MEDS: INSULIN R PO SS1 SQ SCH ×4 (05:59→20:20)
[2019-11-29 06:09] LABS: CREATININE 0.8 mg/dL (0.5-1.5); MAGNESIUM 1.6 mg/dL (1.80-2.40); POTASSIUM 3.8 mmol/L (3.5-5.1)
[2019-11-29 08:16] VITALS: BP 125/79
--- NOTE | 2019-11-29 10:20 | NUR ---
DCP CM met with pt discussed dc plans. Pt is independent prior to admission, lives at home with spouse, son and 4 grandchildren. Denies any equipments/services. Pt feels safe to go back home, still drives as needed, spouse able to assist with transportation and needs as necessary. DC plan to home once stable. CM to cont to follow up. Addendum: 11/29/19 at 1023 by ANDRA REAL LVN CM Amended: Links added.
--- NOTE | 2019-11-29 10:21 | NUR ---
CM DCP:cont Pt agreeable for short term placement if necessary and MD recommends. ZACHARIAH signed for #1[facility]. Pt verbalized he doesn't want to go to [facility] as he still has a balance he has not paid. Will wait for MD recommendations. CM to cont to follow up. Addendum: 11/29/19 at 1023 by ANDRA REAL LVN CM Amended: Links added.
--- NOTE | 2019-11-29 10:40 | NUR ---
chart reviewed, urbano royal, pt discussed deena sanchez, order recd Addendum: 11/29/19 at 1043 by DAQUAN GARVEY RN CM Amended: Links added.
[2019-11-29 11:33] VITALS: BP 93/41
[2019-11-29] MEDS ORDERED: MAGNESIUM 2GM PREMIX 50ML 50 ML IV SCH (11:43)
[2019-11-29] MEDS: ALPRAZOLAM 1 MG TAB PO PRN ×2 (11:48→23:26)
[2019-11-29] MEDS: ZOSYN 3.375GM+NS 50ML 50 ML IV SCH ×2 (12:22→20:20)
--- NOTE | 2019-11-29 16:18 | NUR ---
[facility] consult Patient is being followed by Dr. Heath. No [facility] recommendations at this time.
[2019-11-29 17:45] VITALS: BP 134/74
[2019-11-29 19:00] VITALS: BP 160/85
[2019-11-29 23:00] VITALS: BP 177/95
[2019-11-30 03:00] VITALS: BP 152/82
[2019-11-30] MEDS: ZOSYN 3.375GM+NS 50ML 50 ML IV SCH ×3 (05:27→20:10)
[2019-11-30] MEDS: VANCOMYCIN 1.5 GM in SODIUM CHLORIDE 0.9% 250 ML IV SCH ×2 (05:27→17:25)
[2019-11-30] MEDS ORDERED: TRAMADOL HCL 50 MG TABLET PO PRN (05:45)
[2019-11-30] MEDS: INSULIN R PO SS1 SQ SCH ×3 (06:41→17:26)
[2019-11-30 08:00] VITALS: BP 95/59
[2019-11-30] MEDS: ALPRAZOLAM 1 MG TAB PO PRN ×2 (09:44→20:10)
[2019-11-30] MEDS: MORPHINE SULFATE 2 MG/ML 1ML SYG IVP PRN ×2 (09:44→20:16)
[2019-11-30] MEDS ORDERED: VANCOMYCIN 1.5 GM in SODIUM CHLORIDE 0.9% 250 ML IV SCH (11:00)
[2019-11-30 12:00] VITALS: BP 102/72
--- NOTE | 2019-11-30 14:00 | NUR ---
DR BELTRÁN IN TO SEE PATIENT STATES PATIENT HAS BEEN SEEN BY DR GONSALES IN PAST FOR SAME PROBLEM, HE RECOMMENDS CONSULT WITH DR GONSALES INSTEAD, DR BYERS AND DR GARCIA NOTIFIED, OK TO CONSULT DR ILDA MD NOTIFIED SPOKE WITH DR DAILY STATES HE WILL SEE PATIENT IN AM.
[2019-11-30 16:00] VITALS: BP 131/75
[2019-11-30 19:46] VITALS: BP 123/74
[2019-12-01] VITALS (25 sets, daily range): BP systolic 104–158; BP diastolic 60–94
[2019-12-01] MEDS: INSULIN R PO SS1 SQ SCH ×4 (00:42→21:00)
[2019-12-01] MEDS: ALPRAZOLAM 1 MG TAB PO PRN ×2 (02:44→23:43)
[2019-12-01] MEDS: MORPHINE SULFATE 2 MG/ML 1ML SYG IVP PRN ×3 (02:45→23:44)
[2019-12-01] MEDS: ZOSYN 3.375GM+NS 50ML 50 ML IV SCH ×3 (05:13→21:27)
[2019-12-01] MEDS: VANCOMYCIN 1.5 GM in SODIUM CHLORIDE 0.9% 250 ML IV SCH ×2 (05:16→17:04)
[2019-12-01 06:09] LABS: HEMATOCRIT 39.7 % (42-54); MEAN CORPUSCULAR HEMOGLOBIN 27.4 pg (27.0-33.0); MEAN CORPUSCULAR HGB CONC 33.8 g/dL (32.0-36.0); MEAN CORPUSCULAR VOLUME 81.2 fL (79-99); RED BLOOD CELL COUNT(AUTO) 4.89 MIL/uL (4.50-6.20); RED CELL DISTRIBUTION WIDTH 13.8 % (11.0-15.5); WHITE BLOOD COUNT (AUTO) 5.8 K/uL (4.8-10.8)
[2019-12-01 06:29] LABS: CREATININE 0.8 mg/dL (0.5-1.5); MAGNESIUM 1.8 mg/dL (1.80-2.40); POTASSIUM 3.9 mmol/L (3.5-5.1)
[2019-12-01] MEDS: ASPIRIN 81MG TAB.CHEW PO SCH (10:50)
[2019-12-01] MEDS ORDERED: KETOROLAC TROMETHAMINE 30MG/ML IV ONE (14:15)
[2019-12-01] MEDS ORDERED: LIDOCAINE HCL 1% 20 ML VIAL ONE (14:58)
[2019-12-01] MEDS ORDERED: BUPIVACAINE/PF 0.5% 30ML VIAL ONE (14:58)
[2019-12-01] MEDS ORDERED: MIDAZOLAM HCL 1 MG/ML 2ML VIAL ONE (17:24)
[2019-12-01] MEDS ORDERED: LIDOCAINE PF 2% 5ML ABBOJECT ONE (17:24)
[2019-12-01] MEDS ORDERED: FENTANYL CITRATE PF 50 MCG/1 ML 2ML VIAL ONE (17:24)
[2019-12-01] MEDS ORDERED: PROPOFOL 1000 MG/100 ML 100 ML IV ONE (17:25)
[2019-12-01] MEDS ORDERED: PROPOFOL 10 MG/ML 20ML VIAL IV ONE (19:19)
--- NOTE | 2019-12-01 20:40 | NUR ---
NOTE PATIENT RETURNED FROM PACU AND REPORTS NO PAIN AT THIS TIME. DRESSING ON LEFT FOOT STAINED WITH IODINE, BUT NOT BLOOD. ELEVATED ON PILLOW. PATIENT HAS VANCOMYCIN INFUSING.
[2019-12-01] MEDS: ATORVASTATIN CALCIUM 10 MG TABLET PO SCH (21:28)
[2019-12-02] VITALS (9 sets, daily range): BP systolic 117–156; BP diastolic 70–93
[2019-12-02] MEDS ORDERED: MORPHINE SULFATE 2 MG/ML 1ML SYG IVP PRN (02:00)
[2019-12-02] MEDS: VANCOMYCIN 1.5 GM in SODIUM CHLORIDE 0.9% 250 ML IV SCH (04:48)
--- NOTE | 2019-12-02 05:20 | NUR ---
NOTE NOTED DRESSING HAS DRAINAGE SPOTS OF BLOOD AND ALSO SOME STAINING ON BED SHEETS. REMOVED EVA WRAP AND REINFORCED SURGICAL DRESSING BY ADDING ABD PADS TO 2 AREAS WHERE BLOOD STAINS WERE NOTED. WRAPPED WITH KERLIX AND A NEW EVA WRAP. CHANGED BED LINEN AND PLACED BED PAD UNDER FOOT.
[2019-12-02] MEDS: ZOSYN 3.375GM+NS 50ML 50 ML IV SCH ×3 (06:36→19:59)
[2019-12-02] MEDS: ALPRAZOLAM 1 MG TAB PO PRN ×3 (06:36→23:55)
[2019-12-02] MEDS: INSULIN R PO SS1 SQ SCH ×4 (06:36→22:52)
[2019-12-02] MEDS: ASPIRIN 81MG TAB.CHEW PO SCH (09:06)
[2019-12-02] MEDS: HYDROMORPHONE 1 MG/1 ML AMP IVP PRN ×4 (10:34→23:56)
[2019-12-02] MEDS: VANCOMYCIN 1.25 GM in SODIUM CHLORIDE 0.9% 250 ML IV SCH ×2 (17:45→23:57)
[2019-12-02] MEDS: CELECOXIB 100 MG CAP PO SCH (22:45)
[2019-12-02] MEDS: TRAZODONE HCL 100 MG TABLET PO PRN (22:45)
[2019-12-02] MEDS: OXCARBAZEPINE 300 MG TAB PO SCH (22:46)
[2019-12-02] MEDS: ATORVASTATIN CALCIUM 10 MG TABLET PO SCH (22:46)
[2019-12-03] MEDS: HYDROMORPHONE 1 MG/1 ML AMP IVP PRN (04:06)
[2019-12-03] MEDS: ZOSYN 3.375GM+NS 50ML 50 ML IV SCH ×3 (04:06→21:33)
[2019-12-03 04:32] VITALS: BP 92/46
[2019-12-03 05:11] LABS: HEMATOCRIT 30.2 % (42-54); MEAN CORPUSCULAR HEMOGLOBIN 27.7 pg (27.0-33.0); MEAN CORPUSCULAR HGB CONC 33.8 g/dL (32.0-36.0); MEAN CORPUSCULAR VOLUME 82.1 fL (79-99); RED BLOOD CELL COUNT(AUTO) 3.68 MIL/uL (4.50-6.20); RED CELL DISTRIBUTION WIDTH 13.9 % (11.0-15.5); WHITE BLOOD COUNT (AUTO) 7.6 K/uL (4.8-10.8)
[2019-12-03 05:30] LABS: CREATININE 1.1 mg/dL (0.5-1.5); MAGNESIUM 1.8 mg/dL (1.80-2.40); POTASSIUM 3.8 mmol/L (3.5-5.1)
[2019-12-03] MEDS: INSULIN R PO SS1 SQ SCH ×4 (06:07→21:34)
--- NOTE | 2019-12-03 08:00 | NUR ---
NOTE ASLEEP. AWAKENS EASILY BUT EASILY GOES BACK TO SLEEP. STATES HE HAS NOT SLEPT FOR 2 DAYS. DURING THE NIGHT HE C/O LLE PAIN AND WAS MEDICATED 3 TIMES WITH DILAUDID AND WITH TRAZADONE 300 MG AND XANAX. WILL CHECK WITH DR BYERS WHEN HE ROUNDS BECAUSE PATIENT IS TOO SLEEPY/DROWSY AND HIS BLOOD PRESSURE IS RUNNING A LITTLE LOW. ASYMPTOMATIC AND PAIN FREE THOUGH. DR GARCIA CAME IN AND DID DRESSING CHANGE AND PICTURES WERE TAKEN.
[2019-12-03 08:41] VITALS: BP 88/50
[2019-12-03] MEDS: METFORMIN HCL 500 MG TABLET PO SCH ×2 (08:51→17:24)
[2019-12-03] MEDS: FLUOXETINE HCL 20 MG CAPSULE PO SCH ×2 (08:51→21:33)
[2019-12-03] MEDS: ASPIRIN 81MG TAB.CHEW PO SCH (08:51)
[2019-12-03] MEDS: OXCARBAZEPINE 300 MG TAB PO SCH ×2 (08:52→21:33)
[2019-12-03] MEDS: LISINOPRIL 10 MG TABLET PO SCH (08:54)
[2019-12-03] MEDS: LIRAGLUTIDE 0.6 MG SQ SCH ×2 (08:54→21:00)
[2019-12-03] MEDS: PANTOPRAZOLE SODIUM 40 MG TABLET.DR PO SCH (08:54)
[2019-12-03] MEDS: CELECOXIB 100 MG CAP PO SCH ×2 (08:55→21:33)
[2019-12-03] MEDS: VANCOMYCIN 1.25 GM in SODIUM CHLORIDE 0.9% 250 ML IV SCH (08:58)
[2019-12-03] MEDS ORDERED: SODIUM CHLORIDE 0.9% 500ML 500 ML IV SCH (09:35)
[2019-12-03 11:51] VITALS: BP 107/59
[2019-12-03 16:47] VITALS: BP 96/55
--- NOTE | 2019-12-03 18:00 | NUR ---
NOTE CONTINUES TO BE VERY SLEEPY. HE HAS BEEN SCHEDULED FOR ANGIOGRAM FOR TOMORROW. WILL OBTAIN CONSENT.
[2019-12-03] MEDS ORDERED: VANCOMYCIN 1GM+NS 250ML 250 ML IV SCH (19:00)
[2019-12-03 20:17] VITALS: BP 112/68
[2019-12-03] MEDS: ATORVASTATIN CALCIUM 10 MG TABLET PO SCH (21:33)
--- NOTE | 2019-12-03 21:35 | NUR ---
MEDS SHIFT ASSESSMENT DONE, PLEASE REFER TO CHART. PT COMPLAINTS OF LEFT FOOT PAINS AND ANXIETY. DUE MEDS ADMINISTERED, TRAMADOL AND XANAX GIVEN FOR ANXIETY AND PAINS. PT TOLERATED MED WELL. KEPT RESTED AND COMFORTABLE IN BED. INSTRUCTED TO BE NPO POST MIDNIGHT FOR PROCEDURE IN AM. PT VERBALIZES UNDERSTANDING. CALL LIGHT WITHIN REACH. Addendum: 12/04/19 at 0139 by LOAN ALONSO RN RN Amended: Links added.
[2019-12-03] MEDS: ALPRAZOLAM 1 MG TAB PO PRN (21:42)
--- NOTE | 2019-12-03 22:45 | NUR ---
PAIN DRESSING ON PT'S LEFT FOOT COME OFF AND ENOCH RN, IN AND CHANGED DRESSING. PT COMPLAINTS OF THROBBING PAINS ON HIS LEFT FOOT AND CLAIMS OF INABILITY TO GO TO SLEEP. INFORMED THAT HE SLEPT ALL DAY PER AM RN. PT STILL CLAIMS HE DID NOT SLEEP FOR GOOD FOR 3 DAYS THAT IS WHY. MEDICATED WITH NORCO AND TRAZODONE PO. WILL RE-ASSESS PT. RE-ITERATED NPO POST MN.
[2019-12-03] MEDS: TRAZODONE HCL 100 MG TABLET PO PRN (22:46)
[2019-12-03] MEDS: HYDROCODONE/ACETAMINOPHEN 5/325 MG TAB PO PRN (22:46)
[2019-12-03 23:43] VITALS: BP 168/90
[2019-12-04] VITALS (11 sets, daily range): BP systolic 90–119; BP diastolic 53–78
--- NOTE | 2019-12-04 02:00 | NUR ---
ROUNDS PT RESTING WELL, FAIRLY ASLEEP. NO DISTRESS NOTED. KEPT RESTED AND UNDISTURBED. WILL CONTINUE TO MONITOR.
[2019-12-04] MEDS: ZOSYN 3.375GM+NS 50ML 50 ML IV SCH ×2 (04:48→14:23)
[2019-12-04 05:23] LABS: INR 0.9 (0.85-1.15); PARTIAL THROMBOPLASTIN TIME 32.5 SEC (26.3-35.5); PROTHROMBIN TIME 9.8 SEC (9.6-11.6)
[2019-12-04 05:36] LABS: CREATINE KINASE, TOTAL 50 U/L (21-232); MYOGLOBIN 65 ng/mL (10-92); TROPONIN I < 0.04 ng/mL (0.00-0.06)
[2019-12-04] MEDS: INSULIN R PO SS1 SQ SCH ×2 (05:56→11:30)
[2019-12-04] MEDS: ALPRAZOLAM 1 MG TAB PO PRN (06:36)
[2019-12-04] MEDS: HYDROCODONE/ACETAMINOPHEN 5/325 MG TAB PO PRN ×3 (06:36→12:44)
--- NOTE | 2019-12-04 06:44 | NUR ---
MEDS PCP IN AND CLIPPED PT. ASSISTED PT TO SHOWER, TOLERATED ACTIVITY WELL. EKG DONE, PRINT OUT IN CHART. CHEST X-RAY DONE AT BEDSIDE. PLACED BACK PT ON IVF AND IV ZOSYN. PT COMPLAINTS OF PAIN TO LEFT FOOT AND ASKS FOR ANXIETY PILL. XANAX AND NORCO GIVEN WITH SIPS OF WATER. KEPT NPO. RE-ENFORCED DRESSING TO LEFT FOOT. FOR MORE CARE AND MANAGEMENT.
[2019-12-04] MEDS: METFORMIN HCL 500 MG TABLET PO SCH ×2 (08:00→17:37)
--- NOTE | 2019-12-04 08:40 | NUR ---
PT TO DENTAL FINANCIAL COORDINATOR, VIA BED . REVIEW CONSENT. EDUCATION DONE,
[2019-12-04] MEDS: LIRAGLUTIDE 0.6 MG SQ SCH (09:00)
[2019-12-04] MEDS ORDERED: HEPARIN SODIUM 1000UNIT/ML 10ML VIAL ONE (09:06)
[2019-12-04] MEDS ORDERED: NITROGLYCERIN 2 MG/VIAL VIAL IV ONE (09:07)
[2019-12-04] MEDS ORDERED: IODIXANOL 320 MG/ML 100 ML VIAL ONE (09:07)
[2019-12-04] MEDS ORDERED: LIDOCAINE HCL 2% 20ML ONE (09:07)
--- NOTE | 2019-12-04 09:55 | NUR ---
PT BACK FROM TARIFF COMPILING CLERK, P T AWAKE, FLAT POSITION . REVIEW DR. GONSALES ORDERS PT TO REMAIN FLAT X 1 HR. RT GROIN DRSG DRY AND CLEAN ,WITH NO BLEEDING OR HEMATOMA NOTED. SOFT . AROUND INSERTION CATHETER SITE, IVF . NS AT 100 CC HR SET UP ORDER. POSTOP V/S STARTED . BEDLEVEL DOWN AND CALL LIGHT IN REACH.. PAIN SCALE OF 0-1 .
[2019-12-04] MEDS: CELECOXIB 100 MG CAP PO SCH (11:35)
[2019-12-04] MEDS: OXCARBAZEPINE 300 MG TAB PO SCH (11:35)
[2019-12-04] MEDS: PANTOPRAZOLE SODIUM 40 MG TABLET.DR PO SCH (11:35)
[2019-12-04] MEDS: FLUOXETINE HCL 20 MG CAPSULE PO SCH (11:35)
[2019-12-04] MEDS: LISINOPRIL 10 MG TABLET PO SCH (11:36)
[2019-12-04] MEDS: ASPIRIN 81MG TAB.CHEW PO SCH (11:36)
[2019-12-04] MEDS: VANCOMYCIN 1GM+NS 250ML 250 ML IV SCH ×2 (11:37→17:00)
--- NOTE | 2019-12-04 17:00 | NUR ---
IVF COMPLETED .NS AT 100 [facility] 6HRS. PER ORDERS . . PT RT GROIN DRSG WITH NO HEMATOMA. OR DRAINAGE MAINTAIN . CLEAN . AND SOFT AREA . DENIES ANY [PAIN .. PT WAS ABLE TO GET UP . WITH NO DISCOMFORT. CALL LIGHT IN REACH
--- NOTE | 2019-12-04 18:27 | NUR ---
1440 patient signed IM Letter. I faxed IM Letter to [phone] and placed in chart under consent tab.
--- NOTE | 2019-12-04 18:30 | NUR ---
PT DISCHARGE HOME . REVIEW DISCHARGE SUMMARY. REGARDING . APPT TO BE MADE TO SEE DR GARCIA THIS TUESDAY, FOR REMOVAL OF J.P. DRAIN AND WOUND CARE TO HIS LEFT, FOOT . PT HISTORY OF A TMA. DRSG REMOVE FOR PICTURES PER PT . DOES HIS WOUND CARE AT HOME, WILL FOLLOW APPT.WITH DR. GARCIA THIS TUESDAY AND WITH DR. KELLY . SET FOR HIM ,SL TO HIS LFA , WAS DC WITH NO HEMATOMA NOTED . DRSG WAS ALSO REDONE. PER DR Marya KIM WOUND CARE DRSG . APPLICATION OF VASOLINE GAUZE, AND BETADINE SOAK APPLICATION ON . LEFT FOOT WRAP WITH THE KERLIX AND SECURE WITH EVA BANDAGE TOLERATE WELL .CLEAN SUTURE LINE, NOTED NO DRAINAGE OR FOUL SMELL. PT AWARE OF DRSG CHANGES AND TO KEEP . CLEAN AND WASHING HANDS .
[2020-04-18] MEDS ORDERED: TRAZ150 PO (20:58)
[2020-04-18] MEDS ORDERED: HYDR-4068 PO (20:58)
== END 2019-12-04 18:40 | disposition home or self-care (01) | DRG 504 ==
LOC: EEVIPCON 14:17 → EDH 14:17 → EDHIP 14:48 → OBSVTOIN 14:48 → 3CH 19:34
PROVIDERS: ADMIT Internal Medicine Infectious Disease; ATTEND Internal Medicine Infectious Disease
PROC: 0QBP0ZZ Excision of Left Metatarsal, Open Approach (ICD-10-PCS; 2019-12-01)
PROC: B41G1ZZ Fluoroscopy of Left Lower Extremity Arteries using Low Osmolar Contrast (ICD-10-PCS; principal; 2019-12-04)
DX: T87.89 Other complications of amputation stump (principal); M86.9 Osteomyelitis, unspecified; L03.116 Cellulitis of left lower limb; L97.409 Non-pressure chronic ulcer of unspecified heel and midfoot with unspecified severity; T81.30XA Disruption of wound, unspecified, initial encounter; E11.69 Type 2 diabetes mellitus with other specified complication; L97.529 Non-pressure chronic ulcer of other part of left foot with unspecified severity; E11.51 Type 2 diabetes mellitus with diabetic peripheral angiopathy without gangrene; E11.621 Type 2 diabetes mellitus with foot ulcer; E66.01 Morbid (severe) obesity due to excess calories; Z68.35 Body mass index [BMI] 35.0-35.9, adult; E78.5 Hyperlipidemia, unspecified; F41.9 Anxiety disorder, unspecified; G89.29 Other chronic pain; I10 Essential (primary) hypertension; J44.9 Chronic obstructive pulmonary disease, unspecified; Y83.8 Other surgical procedures as the cause of abnormal reaction of the patient, or of later complication, without mention of misadventure at the time of the procedure; Z83.3 Family history of diabetes mellitus; Z87.891 Personal history of nicotine dependence; Z89.439 Acquired absence of unspecified foot; Z98.61 Coronary angioplasty status
CPT/HCPCS: 36247; 36415; 71045; 73630; 73718; 75630; 75710; 80048; 80053; 80202; 82550; 82948; 83735; 83874; 84484; 85025; 85027; 85610; 85730; 87070; 87076; 87077; 87186; 87205; 88304; 88311; 93005; 93926; 97039; C1760; C1769; C1894; G0378; J0360; J1170; J1644; J1815; J1885; J2001; J2250; J2405; J2543; J2704; J3010; J3370; J3475; J3490; J7040; J7050; Q9967

== ENCOUNTER 2020-02-13 18:48 | Inpatient (IN) | payer OTHER ==
[~2020-02-13] VITALS: Ht 185.4 cm; Wt 118.3 kg
[~2020-02-13 18:48] MED LIST changes: -ATOR40TA71 PO; +CEFU500T67 PO; -HYDR-4068 PO; -LEVO500T2 PO; +LIRA0.6P SQ; -LISI-617 PO; +LISI10TA7 PO; -MECL-160 PO; +METF-446 PO; +TRAZ300T2 PO
[2020-02-13] MEDS ORDERED: MORPHINE SULFATE 2 MG/ML 1ML SYG ONE (20:00)
[2020-02-13] MEDS: SODIUM CHLORIDE 0.9% 1000ML 1,000 ML IV SCH (20:01)
[2020-02-13] MEDS ORDERED: MORPHINE SULFATE 4 MG/1ML SYG IV PRN (20:15)
[2020-02-13] MEDS ORDERED: ACETAMINOPHEN 325 MG TAB PO PRN (20:15)
[2020-02-13] MEDS ORDERED: ONDANSETRON HCL 4 MG/2 ML VIAL IV PRN (20:15)
[2020-02-13 20:47] LABS: HEMATOCRIT 26.1 % (42-54); MEAN CORPUSCULAR HEMOGLOBIN 26.9 pg (27.0-33.0); MEAN CORPUSCULAR HGB CONC 34.5 g/dL (32.0-36.0); MEAN CORPUSCULAR VOLUME 78.1 fL (79-99); RED BLOOD CELL COUNT(AUTO) 3.34 MIL/uL (4.50-6.20); RED CELL DISTRIBUTION WIDTH 14.5 % (11.0-15.5); WHITE BLOOD COUNT (AUTO) 12.1 K/uL (4.8-10.8)
[2020-02-13 20:55] LABS: POTASSIUM 4.2 mmol/L (3.5-5.1)
[2020-02-13] MEDS: TRAZODONE HCL 50 MG TAB PO SCH (21:00)
[2020-02-13 22:20] VITALS: BP 117/68
--- NOTE | 2020-02-13 22:20 | NUR ---
ADMIT PT ADMITTED TO ROOM 303, AAOX3. CLAIMS OF PAINS TO LLE. DUE MEDS NOT GIVEN IN ER ADMINISTERED. CONTINUED IVF OF NS REGULATED AT 100CC/HR. PICTURE OF LEFT FOOT WOUND DONE, PLACED IN CHART. NOTED WOUND WITH SUTURES AND IS TUNNELING ON OPENED AREA OF WOUND. WOUND CX DONE, SENT TO LAB FOR ANALYSIS. WET TO DRY DRESSING DONE TO LEFT FOOT WOUND. MEDICATED PT WITH NORCO FOR PAINS. KEPT RESTED AND COMFORTABLE IN BED. ORIENTED TO ROOM AND UNIT. IN FOR MORE CARE AND MANAGEMENT. Addendum: 02/14/20 at 0144 by LOAN ALONSO RN RN Amended: Links added.
[2020-02-13] MEDS: CELECOXIB 100 MG CAP PO SCH (22:44)
[2020-02-13] MEDS: FLUOXETINE HCL 20 MG CAPSULE PO SCH (22:44)
[2020-02-13] MEDS: MEROPENEM 500 MG VIAL IV SCH (22:44)
[2020-02-13] MEDS: INSULIN HUMULIN R 100 UNIT/ML 3ML SQ SCH (22:46)
[2020-02-13] MEDS: HYDROCODONE/ACETAMINOPHEN 5/325 MG TAB PO PRN (23:12)
[2020-02-13] MEDS ORDERED: HYDROMORPHONE 1 MG/1 ML AMP IVP PRN (23:45)
[2020-02-14] VITALS: BP 135/79
--- NOTE | 2020-02-14 00:30 | NUR ---
TEST PT HAS FEVER OF 101.2. MEDICATED WITH TYLENOL PO. COLD PACKS APPLIED TO HEAD AND ARMPITS. KEPT ROOM TEMPERATURE COOL. COVID PCR SWAB DONE AND SENT TO LAB FOR ANALYSIS. WILL RE-ASSESS PT.
--- NOTE | 2020-02-14 02:00 | NUR ---
ROUNDS PT RESTING WELL, FAIRLY ASLEEP. NO DISTRESS NOTED. KEPT UNDISTURBED FOR NOW. WILL MONITOR PT. CALL LIGHT WITHIN REACH.
[2020-02-14] MEDS: HYDROCODONE/ACETAMINOPHEN 5/325 MG TAB PO PRN ×3 (03:45→13:30)
[2020-02-14] MEDS: MEROPENEM 500 MG VIAL IV SCH ×4 (03:45→21:03)
[2020-02-14 04:00] VITALS: BP 91/54
--- NOTE | 2020-02-14 04:45 | NUR ---
MEDS MACHINE LOADER IN TO DRAW BLOOD. DUE MEDS ADMINISTERED, NORCO PO GIVEN FOR PAIN. KEPT RESTED AND COMFORTABLE. CALL LIGHT WITHIN REACH. WILL RE-ASSESS PT.
[2020-02-14 05:15] LABS: BASOPHILS % (AUTO) 0.4 % (0.0-5.0); EOSINOPHILS % (AUTO) 0.4 % (0.0-8.0); HEMATOCRIT 24.3 % (42-54); LYMPHOCYTES % (AUTO) 11.7 % (21.0-51.0); MEAN CORPUSCULAR HEMOGLOBIN 26.6 pg (27.0-33.0); MEAN CORPUSCULAR HGB CONC 34.2 g/dL (32.0-36.0); MEAN CORPUSCULAR VOLUME 77.9 fL (79-99); MONOCYTES % (AUTO) 8.4 % (3.0-13.0); NEUTROPHILS % (AUTO) 78.1 % (40.0-77.0); PLATELET COUNT (AUTO) 267 K/uL (130-400); RED BLOOD CELL COUNT(AUTO) 3.12 MIL/uL (4.50-6.20); RED CELL DISTRIBUTION WIDTH 14.6 % (11.0-15.5); WHITE BLOOD COUNT (AUTO) 11.2 K/uL (4.8-10.8)
[2020-02-14] MEDS: SODIUM CHLORIDE 0.9% 1000ML 1,000 ML IV SCH ×3 (06:01→21:30)
[2020-02-14] MEDS: INSULIN HUMULIN R 100 UNIT/ML 3ML SQ SCH ×4 (06:03→21:37)
[2020-02-14 06:08] LABS: CREATININE 1.8 mg/dL (0.5-1.5); POTASSIUM 3.8 mmol/L (3.5-5.1)
[2020-02-14 06:11] LABS: HEMOGLOBIN A1C 8.4 % (4.0-6.0)
[2020-02-14 07:45] VITALS: BP 105/68
[2020-02-14] MEDS: ENOXAPARIN SODIUM 40 MG/0.4 ML SYRINGE SQ SCH (08:46)
[2020-02-14] MEDS: CELECOXIB 100 MG CAP PO SCH ×2 (08:46→21:03)
[2020-02-14] MEDS: PANTOPRAZOLE SODIUM 40 MG TABLET.DR PO SCH (08:46)
[2020-02-14] MEDS: FLUOXETINE HCL 20 MG CAPSULE PO SCH ×2 (08:46→21:03)
[2020-02-14] MEDS: LISINOPRIL 10 MG TABLET PO SCH (08:47)
[2020-02-14] MEDS ORDERED: VANCOMYCIN PROTOCOL PER PHARMACY IV SCH (10:30)
[2020-02-14] MEDS: VANCOMYCIN 1.5 GM in SODIUM CHLORIDE 0.9% 250 ML IV SCH ×2 (10:45→21:04)
[2020-02-14] MEDS ORDERED: COMPOUND IV REFRIGERATED 1 EACH IVSOLN MISC PRN (10:45)
[2020-02-14 11:00] VITALS: BP 100/64
[2020-02-14] MEDS ORDERED: HYDROMORPHONE HCL 0.5 MG/0.5 ML ML ONE ×2 (11:10→16:51)
--- NOTE | 2020-02-14 13:35 | NUR ---
RD NOTIFICATION Pt admitted with Infected L-Foot Decubitus wound. 75gm CC diet order in place. BMI 34.4. WBC 11.2, Na 131, Cl 9, BUN 25, Cr 1.8, GFR 42, BG 195, A1C 8.4, Ca 8.0,TG 249, HDL 6. Recommend continue 75gm CCD Recommend 500mg Vitamin C BID Recommend Master BID RD to continue to monitor. Please notify RD as nutritional concerns arise. Thank you.
[2020-02-14 16:00] VITALS: BP 117/74
[2020-02-14 19:00] VITALS: BP 136/80
--- NOTE | 2020-02-14 20:00 | NUR ---
ASSESSMENT NOTE PATIENT AWAKE, ALERT,OX3, NO SOB, TEACH PATIENT PLAN 0F CARE AND EXPECTED OUTCOME, PATIENT VERBALIZES UNDERSTANDING VIA TEACH BACK
[2020-02-14] MEDS: TRAZODONE HCL 50 MG TAB PO SCH (21:00)
[2020-02-14] MEDS: HYDROMORPHONE 1 MG/1 ML AMP IVP PRN (21:30)
[2020-02-15] VITALS (25 sets, daily range): BP systolic 102–146; BP diastolic 47–88
[2020-02-15] MEDS: ALPRAZOLAM 1 MG TAB PO PRN (01:34)
[2020-02-15] MEDS: SODIUM CHLORIDE 0.9% 1000ML 1,000 ML IV SCH ×3 (01:39→21:42)
[2020-02-15] MEDS: HYDROMORPHONE 1 MG/1 ML AMP IVP PRN ×4 (04:00→21:51)
[2020-02-15] MEDS: MEROPENEM 500 MG VIAL IV SCH ×3 (04:00→21:42)
[2020-02-15 04:11] LABS: BASOPHILS % (AUTO) 0.4 % (0.0-5.0); EOSINOPHILS % (AUTO) 1.3 % (0.0-8.0); HEMATOCRIT 24.1 % (42-54); LYMPHOCYTES % (AUTO) 12.2 % (21.0-51.0); MEAN CORPUSCULAR HEMOGLOBIN 26.5 pg (27.0-33.0); MEAN CORPUSCULAR VOLUME 77.7 fL (79-99); MONOCYTES % (AUTO) 8.1 % (3.0-13.0); NEUTROPHILS % (AUTO) 77.1 % (40.0-77.0); PLATELET COUNT (AUTO) 272 K/uL (130-400); RED CELL DISTRIBUTION WIDTH 15.1 % (11.0-15.5)
[2020-02-15 04:37] LABS: CREATININE 1.3 mg/dL (0.5-1.5); POTASSIUM 4.6 mmol/L (3.5-5.1)
[2020-02-15] MEDS: INSULIN HUMULIN R 100 UNIT/ML 3ML SQ SCH ×4 (06:20→21:00)
[2020-02-15] MEDS: CELECOXIB 100 MG CAP PO SCH ×2 (09:00→21:42)
[2020-02-15] MEDS: LISINOPRIL 10 MG TABLET PO SCH (09:00)
[2020-02-15] MEDS: ENOXAPARIN SODIUM 40 MG/0.4 ML SYRINGE SQ SCH (09:00)
[2020-02-15] MEDS: FLUOXETINE HCL 20 MG CAPSULE PO SCH ×2 (09:00→21:41)
[2020-02-15] MEDS: PANTOPRAZOLE SODIUM 40 MG TABLET.DR PO SCH (09:00)
[2020-02-15] MEDS: VANCOMYCIN 1.5 GM in SODIUM CHLORIDE 0.9% 250 ML IV SCH ×2 (11:12→22:57)
--- NOTE | 2020-02-15 12:30 | NUR ---
DCP CM spoke to pt discussed dc plans. Pt is independent prior to admission, lives at home with spouse, son and 4 children. Denies any equipments/services. Feels safe to go back home, spouse able to assist with transportation and needs as necessary. DC plan to home once stable. CM to cont to follow up. Addendum: 02/15/20 at 1232 by ANDRA REAL LVN CM Amended: Links added.
[2020-02-15] MEDS ORDERED: SODIUM CHLORIDE 0.9% 250 ML IV ONE (13:34)
--- NOTE | 2020-02-15 15:12 | NUR ---
PT PREPARED FOR SURGERY OF THE LEFT FOOT. IV PATENT, CURRENT DRSG IN DRY AND INTACT
[2020-02-15] MEDS ORDERED: LIDOCAINE HCL 1% 20 ML VIAL ONE (16:35)
[2020-02-15] MEDS ORDERED: BUPIVACAINE/PF 0.5% 10ML VIAL ONE (16:36)
--- NOTE | 2020-02-15 16:59 | NUR ---
REPORT GIVEN TO SURGERY STAFF, PT T/C FOR 2UNITS PRBC'S. PT TRANSPORTED BY BED IN GOOD CONDITION ACCOMPANIED BY O/R STAFF. S/L IN PLACE AND PATENT.
[2020-02-15] MEDS ORDERED: MIDAZOLAM HCL 1 MG/ML 2ML VIAL ONE (17:35)
[2020-02-15] MEDS ORDERED: FENTANYL CITRATE PF 50 MCG/1 ML 2ML VIAL ONE (17:35)
[2020-02-15] MEDS ORDERED: PROPOFOL 1000 MG/100 ML 100 ML IV ONE (17:46)
--- NOTE | 2020-02-15 18:36 | NUR ---
REPORT GIVEN TO ARA FOR ROOM 321
--- NOTE | 2020-02-15 20:40 | NUR ---
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 GARCIA. PT IS AAOX3, NO ACUTE DISTRESS NOTED. POC DISCUSSED WITH PATIENT. DRESSING NOTED TO BE D/I. WILL CONT TO MONITOR CLOSELY. REPORT RECEIVED FROM ALENA REYES.
[2020-02-16] VITALS (8 sets, daily range): BP systolic 98–155; BP diastolic 52–91
[2020-02-16] MEDS: HYDROMORPHONE 1 MG/1 ML AMP IVP PRN ×3 (02:39→17:36)
[2020-02-16] MEDS: INSULIN HUMULIN R 100 UNIT/ML 3ML SQ SCH ×4 (05:10→21:07)
[2020-02-16] MEDS: MEROPENEM 500 MG VIAL IV SCH ×3 (05:10→21:08)
[2020-02-16 05:29] LABS: BASOPHILS % (AUTO) 0.3 % (0.0-5.0); EOSINOPHILS % (AUTO) 0.6 % (0.0-8.0); HEMATOCRIT 21.2 % (42-54); LYMPHOCYTES % (AUTO) 10.4 % (21.0-51.0); MEAN CORPUSCULAR HEMOGLOBIN 26.4 pg (27.0-33.0); MEAN CORPUSCULAR HGB CONC 34.4 g/dL (32.0-36.0); MEAN CORPUSCULAR VOLUME 76.8 fL (79-99); MONOCYTES % (AUTO) 7.9 % (3.0-13.0); NEUTROPHILS % (AUTO) 79.7 % (40.0-77.0); PLATELET COUNT (AUTO) 338 K/uL (130-400); RED BLOOD CELL COUNT(AUTO) 2.76 MIL/uL (4.50-6.20); RED CELL DISTRIBUTION WIDTH 14.9 % (11.0-15.5); WHITE BLOOD COUNT (AUTO) 12.1 K/uL (4.8-10.8)
[2020-02-16 05:54] LABS: CREATININE 1.2 mg/dL (0.5-1.5); POTASSIUM 4.2 mmol/L (3.5-5.1)
--- NOTE | 2020-02-16 07:35 | NUR ---
TEMP 101.5/REFUSING PRN ANTIPYRETIC OBTAINED TEMPERATURE READING OF 101.5 F VIA ORAL ROUTE. ATTEMPTED TO ADMINISTER TYLENOL 650 MG PO PRN. PATIENT REPLIED "I DON'T WANT TYLENOL! IT WON'T WORK FOR ME!." I REPLIED "YOU HAVE TAKEN TYLENOL BEFORE FOR A FEVER AND IT DID NOT WORK FOR YOU?" AND PATIENT STATED "I HAVE TAKEN A WHOLE BOTTLE OF TYLENOL AND IT WON'T WORK." I TOLD PATIENT "YOUR TEMPERATURE IS 101.5 F, THE TEMPERATURE COULD GET WORSE IF I DON'T ATTEMPT TO GIVE YOU MEDICINE LIKE TYLENOL THAT MAY HELP LOWER YOUR TEMPERATURE. BUT I WILL CALL THE HOSPITALIST DOCTOR AND LET HIM KNOW." PAGED AUTOMOTIVE DESIGN DRAFTER HOSPITALIST TO ANSWERING SERVICE.
[2020-02-16] MEDS ORDERED: IBUPROFEN 200 MG TAB ONE (07:48)
[2020-02-16] MEDS: MORPHINE SULFATE 2 MG/ML 1ML SYG IVP PRN (08:13)
[2020-02-16] MEDS: LISINOPRIL 10 MG TABLET PO SCH (09:00)
[2020-02-16] MEDS: SODIUM CHLORIDE 0.9% 1000ML 1,000 ML IV SCH ×2 (10:08→18:14)
[2020-02-16] MEDS: VANCOMYCIN 1.5 GM in SODIUM CHLORIDE 0.9% 250 ML IV SCH (10:09)
[2020-02-16] MEDS: CELECOXIB 100 MG CAP PO SCH ×2 (10:13→21:08)
[2020-02-16] MEDS: PANTOPRAZOLE SODIUM 40 MG TABLET.DR PO SCH (10:13)
[2020-02-16] MEDS: FLUOXETINE HCL 20 MG CAPSULE PO SCH ×2 (10:13→21:09)
[2020-02-16] MEDS: ENOXAPARIN SODIUM 40 MG/0.4 ML SYRINGE SQ SCH (10:14)
--- NOTE | 2020-02-16 17:30 | NUR ---
SUSTAINED UNWITNESSED FALL I HEARD A LOUD NOISE FROM PATIENTS ROOM. PATIENT FOUND STANDING IN BATHROOM, WALKER IN FRONT OF HIM. PATIENT REPORTED THAT HE FELL. I ASKED PATIENT WHY DIDN'T HE CALL NURSING STAFF TO ASSIST TO BATHROOM AND PATIENT REPLIED "I DON'T KNOW." ASSISTED PATIENT BACK TO BED AND OBTAINED VITAL SIGNS. NO OBVIOUS SIGNS OF INJURY NOTED. LEFT FOOT DRESSING INTACT, MARKED RED DRAINAGE THAT WAS ALREADY PRESENT WITH A BLACK MARKER TO MONITOR FOR INCREASING DRAINAGE. OBTAINED VITAL SIGNS. DR. GERI CAMERON AND DR. GARCIA NOTIFIED. TURN ON BED ALARM, BED LOW AND CALL LIGHT WITHIN REACH.
[2020-02-17] VITALS: BP 112/63
[2020-02-17] MEDS: VANCOMYCIN 1.5 GM in SODIUM CHLORIDE 0.9% 250 ML IV SCH ×3 (00:07→21:55)
[2020-02-17] MEDS: HYDROMORPHONE 1 MG/1 ML AMP IVP PRN (00:12)
[2020-02-17 04:00] VITALS: BP 125/74
[2020-02-17] MEDS: SODIUM CHLORIDE 0.9% 1000ML 1,000 ML IV SCH ×2 (04:37→21:57)
[2020-02-17] MEDS: HYDROMORPHONE HCL 2 MG/ML VIAL IVP PRN ×3 (04:40→18:06)
[2020-02-17] MEDS: MEROPENEM 500 MG VIAL IV SCH ×3 (04:44→21:52)
[2020-02-17] MEDS: INSULIN HUMULIN R 100 UNIT/ML 3ML SQ SCH ×4 (05:32→21:57)
[2020-02-17 08:00] VITALS: BP 129/73
[2020-02-17] MEDS: FLUOXETINE HCL 20 MG CAPSULE PO SCH ×2 (08:05→21:52)
[2020-02-17] MEDS: LISINOPRIL 10 MG TABLET PO SCH (08:06)
[2020-02-17] MEDS: PANTOPRAZOLE SODIUM 40 MG TABLET.DR PO SCH (08:07)
[2020-02-17] MEDS: ENOXAPARIN SODIUM 40 MG/0.4 ML SYRINGE SQ SCH (08:08)
[2020-02-17] MEDS: ALPRAZOLAM 1 MG TAB PO PRN ×3 (08:09→21:52)
[2020-02-17 11:00] VITALS: BP 124/72
[2020-02-17] MEDS: CELECOXIB 100 MG CAP PO SCH ×2 (11:48→21:52)
[2020-02-17 16:00] VITALS: BP 142/80
[2020-02-17 20:00] VITALS: BP 124/74
[2020-02-18] VITALS: BP 136/68
[2020-02-18 03:59] VITALS: BP 143/79
[2020-02-18] MEDS: MEROPENEM 500 MG VIAL IV SCH ×3 (05:53→20:20)
[2020-02-18] MEDS: HYDROMORPHONE HCL 2 MG/ML VIAL IVP PRN (05:58)
[2020-02-18] MEDS: INSULIN HUMULIN R 100 UNIT/ML 3ML SQ SCH ×4 (06:13→21:11)
--- NOTE | 2020-02-18 06:40 | NUR ---
ROUNDS VISITED WITH PATIENT. POC DISCUSSED. DRESSING CHANGE DONE BY MD. NO NEW ORDERS AT THIS TIME. PATIENT AWARE. MEDICATED PER MARS FOR COMPLAINTS OF PAIN. PATIENT REQUESTED DILAUDID, BUT WHEN GIVEN BECOMES VERY CONFUSED. REDIRECTED PATIENT TO USE CALL LIGHT FOR ASSIST. BED ALARM ON. FALL PRECAUTIONS IN PLACE. RESP EVEN AND UNLABORED. ON ROOM AIR. NO SOB NOTED. CALL LIGHT WITHIN REACH. WILL CONTINUE TO BE OBSERVED. Addendum: 02/18/20 at 0644 by RAIN RIVERS RN RN Amended: Links added.
[2020-02-18 08:00] VITALS: BP 148/85
[2020-02-18] MEDS: LISINOPRIL 10 MG TABLET PO SCH (10:51)
[2020-02-18] MEDS: FLUOXETINE HCL 20 MG CAPSULE PO SCH ×2 (10:51→20:19)
[2020-02-18] MEDS: CELECOXIB 100 MG CAP PO SCH ×2 (10:51→20:20)
[2020-02-18] MEDS: PANTOPRAZOLE SODIUM 40 MG TABLET.DR PO SCH (10:52)
[2020-02-18] MEDS: ENOXAPARIN SODIUM 40 MG/0.4 ML SYRINGE SQ SCH (10:54)
[2020-02-18] MEDS: SODIUM CHLORIDE 0.9% 1000ML 1,000 ML IV SCH ×3 (11:02→20:01)
[2020-02-18 12:00] VITALS: BP 134/69
[2020-02-18] MEDS ORDERED: LORAZEPAM 2 MG/ML 1 ML VIAL IVP SCH (13:40)
[2020-02-18 14:15] LABS: INR 0.95 (0.85-1.15); PARTIAL THROMBOPLASTIN TIME 35.5 SEC (26.3-35.5); PROTHROMBIN TIME 10.3 SEC (9.6-11.6)
[2020-02-18] MEDS ORDERED: PHARMACY COMMUNICATION MISC SCH (14:15)
[2020-02-18] MEDS: VANCOMYCIN 1.5 GM in SODIUM CHLORIDE 0.9% 250 ML IV SCH ×2 (15:27→22:37)
[2020-02-18 16:00] VITALS: BP 164/89
--- NOTE | 2020-02-18 16:00 | NUR ---
PICC LINE 5 UPPER SORBIAN 2 LUMEN PICC LINE INSERTED TO RIGHT UPPER ARM , USING STERILE TECHNIQUE. PT TOLERATED PROCEDURE WELL . NO ADVERSE REACTIONS NOTED. PICC LINE AT 41 CM INSERTION SITE, 9 CM EXPOSED. STERILE DRESSING APPLIED TO SITE .BOTH PORTS FLUSHED WITHOUT DIFFICULTY, GOOD BLOOD RETURN ON BOTH.PATIENT DENIED ANY RIGHT ARM PAIN, NUMBNESS, TINGLING OR ANY OTHER DISCOMFORTS. REPORT GIVEN TO PRIMARY NURSE THERESE FERREIRA LVN. PICC LINE READY TO BE USE PER [facility]PS BULLSEYE CONFIRMATION. TIP PLACED AT LOWER 1/3 OF SVC OR AT CAJ.
[2020-02-18 19:30] VITALS: BP 172/92
--- NOTE | 2020-02-18 20:07 | NUR ---
Patient very restless, confused, and disoriented. Yvette MARTIN informed patient has been like this all day. Informed her that spouse called and said that patient might be having alprazolam withdraws. Informed her that patient had come in with large bag of xanax and would take when ever he felt he needed it. Yvette MARTIN stated she would be entering orders.P
[2020-02-18] MEDS ORDERED: ALPRAZOLAM 1 MG TAB PO SCH (20:15)
[2020-02-18] MEDS: IBUPROFEN 400 MG TABLET PO PRN (21:04)
[2020-02-18] MEDS: MORPHINE SULFATE 2 MG/ML 1ML SYG IVP PRN (22:36)
[2020-02-18] MEDS: ALPRAZOLAM 1 MG TAB PO PRN (22:36)
[2020-02-19] VITALS (7 sets, daily range): BP systolic 138–171; BP diastolic 73–90
[2020-02-19] MEDS ORDERED: HALOPERIDOL LACTATE 5 MG/ML VIAL IM SCH (00:15)
[2020-02-19] MEDS ORDERED: HALOPERIDOL LACTATE 5 MG/ML VIAL ONE (00:45)
[2020-02-19] MEDS: SODIUM CHLORIDE 0.9% 1000ML 1,000 ML IV SCH ×3 (00:55→23:17)
--- NOTE | 2020-02-19 04:00 | NUR ---
0003: Patient very upset, oriented x3, calling his to pick him up. Informed patient the importance of him staying in the hospital for the IV antibiotic treatment. Patient stated he wanted to go home only for 3 hours, to shower and take his xanax so he won't have a seizure. Yvette Crook EARLY CHILDHOOD COORDINATOR paged she answered within a few seconds. Informed of above, and also that patient is requesting something to help him fall asleep. Yvette Crook EARLY CHILDHOOD COORDINATOR stated she would enter a medication. Patient made aware verbalized understanding. Informed him would administer the medication as soon as available by pharmacy, verbalized understanding. 0048: Haldol overdrawn by Luc REYES, pt upset because medication not yet administered. Administered Haldol 4 mg IM to Lt deltoid area, tolerated well. 0200: Patient asleep, breathing nonlabored, no discomfort noted. 0400: Patient has remained asleep, calm, repositions self in bed.
[2020-02-19] MEDS: MEROPENEM 500 MG VIAL IV SCH ×3 (05:02→22:33)
[2020-02-19] MEDS: INSULIN HUMULIN R 100 UNIT/ML 3ML SQ SCH ×4 (05:09→21:00)
[2020-02-19 05:14] LABS: BASOPHILS % (AUTO) 0.5 % (0.0-5.0); EOSINOPHILS % (AUTO) 1.2 % (0.0-8.0); LYMPHOCYTES % (AUTO) 17.7 % (21.0-51.0); MEAN CORPUSCULAR HEMOGLOBIN 26.2 pg (27.0-33.0); MEAN CORPUSCULAR HGB CONC 33.5 g/dL (32.0-36.0); MEAN CORPUSCULAR VOLUME 78.1 fL (79-99); MONOCYTES % (AUTO) 7.5 % (3.0-13.0); NEUTROPHILS % (AUTO) 70.3 % (40.0-77.0); PLATELET COUNT (AUTO) 453 K/uL (130-400); RED BLOOD CELL COUNT(AUTO) 2.37 MIL/uL (4.50-6.20); RED CELL DISTRIBUTION WIDTH 15.2 % (11.0-15.5); WHITE BLOOD COUNT (AUTO) 9.5 K/uL (4.8-10.8)
[2020-02-19 05:19] LABS: HEMATOCRIT 18.5 % (42-54)
[2020-02-19 05:28] LABS: POTASSIUM 3.6 mmol/L (3.5-5.1)
[2020-02-19 05:35] LABS: CRP QUANTITATIVE 169.6 mg/L (0.00-9.0)
[2020-02-19 06:05] LABS: HEMATOCRIT 18.7 % (42-54)
--- NOTE | 2020-02-19 06:18 | NUR ---
0615: I called back via answering service, to let him know repeat H/H still low at 6.4/18.7. Informed him no blood noted in the urine, no bowel movement. Orders received for Type and Screen and transfuse one unit of PRBC
[2020-02-19 07:51] LABS: % IRON SATURATION 13.3 % (30-44)
[2020-02-19] MEDS: PANTOPRAZOLE SODIUM 40 MG TABLET.DR PO SCH (10:17)
[2020-02-19] MEDS: CELECOXIB 100 MG CAP PO SCH ×2 (10:17→22:33)
[2020-02-19] MEDS: FLUOXETINE HCL 20 MG CAPSULE PO SCH ×2 (10:18→21:00)
[2020-02-19] MEDS: LISINOPRIL 10 MG TABLET PO SCH (10:18)
[2020-02-19] MEDS: VANCOMYCIN 1.5 GM in SODIUM CHLORIDE 0.9% 250 ML IV SCH ×2 (10:51→23:17)
--- NOTE | 2020-02-19 16:28 | NUR ---
CM Note: Alexi [facility] pending approval and chair time CM unable to speak to pt, w/on and off confusion, called spouse on facesheet, spoke to Suzan Corona discussed MD recommendations for abx at [facility], spouse agreeable, telephone consent obtained ZACHARIAH for [facility], witnessed by Johana RIVERA. Faxed order, clinicals, labs, picc info, order to use, covid result to [facility], confirmation received. Pt pending approval, acceptance, and chair time. Primary nurse aware. CM to cont to follow up.
[2020-02-19] MEDS ORDERED: TRAZODONE HCL 100 MG TABLET PO SCH (21:00)
[2020-02-19] MEDS: TRAZODONE HCL 50 MG TAB PO SCH (22:32)
[2020-02-19] MEDS: IBUPROFEN 400 MG TABLET PO PRN (22:32)
[2020-02-19] MEDS: ALPRAZOLAM 1 MG TAB PO SCH (22:33)
[2020-02-19] MEDS ORDERED: HYDRALAZINE HCL 20 MG/ML VIAL IV PRN (23:45)
--- NOTE | 2020-02-19 23:53 | NUR ---
3738; I paged Maria Guadalupe MORILLOP due to patient's b/p up to 171/85. Out going nurse stated patient has been in the 150's to 160's. Maria Guadalupe Crook PROFESSOR OF ARCHITECTURE answered within a few seconds. Informed her of above, she stated she wound enter new orders. 02/20/20 0030: Rechecked b/p down to 148/78
[2020-02-20 03:48] VITALS: BP 127/61
[2020-02-20] MEDS: MEROPENEM 500 MG VIAL IV SCH ×3 (04:15→21:28)
[2020-02-20 04:40] LABS: BASOPHILS % (AUTO) 0.7 % (0.0-5.0); EOSINOPHILS % (AUTO) 1.5 % (0.0-8.0); HEMATOCRIT 22.1 % (42-54); LYMPHOCYTES % (AUTO) 17.5 % (21.0-51.0); MEAN CORPUSCULAR HEMOGLOBIN 27.1 pg (27.0-33.0); MEAN CORPUSCULAR HGB CONC 34.4 g/dL (32.0-36.0); MEAN CORPUSCULAR VOLUME 78.9 fL (79-99); MONOCYTES % (AUTO) 6.6 % (3.0-13.0); NEUTROPHILS % (AUTO) 70.3 % (40.0-77.0); NUCLEATED RED BLOOD CELLS 0.2 % (0.0-0.19); PLATELET COUNT (AUTO) 515 K/uL (130-400); RED CELL DISTRIBUTION WIDTH 15.3 % (11.0-15.5); WHITE BLOOD COUNT (AUTO) 8.5 K/uL (4.8-10.8)
[2020-02-20 04:51] LABS: POTASSIUM 3.7 mmol/L (3.5-5.1)
[2020-02-20] MEDS: INSULIN HUMULIN R 100 UNIT/ML 3ML SQ SCH ×4 (05:58→21:00)
[2020-02-20 08:00] VITALS: BP 114/70
[2020-02-20] MEDS: FLUOXETINE HCL 20 MG CAPSULE PO SCH ×2 (09:20→21:28)
[2020-02-20] MEDS: ALPRAZOLAM 1 MG TAB PO SCH ×3 (09:21→21:28)
[2020-02-20] MEDS: LISINOPRIL 10 MG TABLET PO SCH (09:21)
[2020-02-20] MEDS: PANTOPRAZOLE SODIUM 40 MG TABLET.DR PO SCH (09:21)
[2020-02-20] MEDS: CELECOXIB 100 MG CAP PO SCH ×2 (09:28→21:28)
[2020-02-20] MEDS: IBUPROFEN 400 MG TABLET PO PRN (09:30)
[2020-02-20] MEDS: SODIUM CHLORIDE 0.9% 1000ML 1,000 ML IV SCH ×2 (09:32→22:01)
[2020-02-20] MEDS: VANCOMYCIN 1.25 GM in SODIUM CHLORIDE 0.9% 250 ML IV SCH ×2 (09:32→21:27)
[2020-02-20] MEDS ORDERED: ACETAMINOPHEN 325 MG TAB PO PRN (11:15)
[2020-02-20 11:55] VITALS: BP 152/76
--- NOTE | 2020-02-20 12:08 | NUR ---
CM Note: Alexi [facility] pending approval and chair time CM spoke to Karen shaffer/[facility], received clinicals yesterday already forwarded to pharmacy. Pt pending approval and chair time at this time. Primary nurse aware. CM to cont to follow up.
[2020-02-20 16:00] VITALS: BP 138/71
--- NOTE | 2020-02-20 17:55 | NUR ---
DR. Peterson on case okay to put it on his census.
[2020-02-20 19:30] VITALS: BP 162/98
--- NOTE | 2020-02-20 19:33 | NUR ---
Dressing changed by DR. Heath to left foot.
[2020-02-20] MEDS ORDERED: TRAZODONE HCL 50 MG TAB PO SCH (21:00)
[2020-02-20] MEDS: TRAZODONE HCL 50 MG TAB PO SCH (21:31)
[2020-02-20 23:57] VITALS: BP 165/76
[2020-02-21 04:00] VITALS: BP 132/68
[2020-02-21 04:40] LABS: BASOPHILS % (AUTO) 0.4 % (0.0-5.0); EOSINOPHILS % (AUTO) 1.9 % (0.0-8.0); HEMATOCRIT 22.5 % (42-54); LYMPHOCYTES % (AUTO) 18.2 % (21.0-51.0); MEAN CORPUSCULAR HEMOGLOBIN 26.8 pg (27.0-33.0); MEAN CORPUSCULAR HGB CONC 33.8 g/dL (32.0-36.0); MEAN CORPUSCULAR VOLUME 79.2 fL (79-99); MONOCYTES % (AUTO) 6.2 % (3.0-13.0); NEUTROPHILS % (AUTO) 71.6 % (40.0-77.0); PLATELET COUNT (AUTO) 504 K/uL (130-400); RED BLOOD CELL COUNT(AUTO) 2.84 MIL/uL (4.50-6.20); RED CELL DISTRIBUTION WIDTH 15.3 % (11.0-15.5); WHITE BLOOD COUNT (AUTO) 8.9 K/uL (4.8-10.8)
[2020-02-21] MEDS: MEROPENEM 500 MG VIAL IV SCH ×3 (05:06→22:03)
[2020-02-21 05:18] LABS: POTASSIUM 3.4 mmol/L (3.5-5.1)
[2020-02-21] MEDS: HYDROMORPHONE 1 MG/1 ML AMP IVP PRN (05:32)
[2020-02-21] MEDS: INSULIN HUMULIN R 100 UNIT/ML 3ML SQ SCH ×4 (07:30→21:00)
[2020-02-21] MEDS: SODIUM CHLORIDE 0.9% 1000ML 1,000 ML IV SCH (08:01)
[2020-02-21 08:11] VITALS: BP 140/72
[2020-02-21] MEDS: FLUOXETINE HCL 20 MG CAPSULE PO SCH ×2 (10:47→22:04)
[2020-02-21] MEDS: CELECOXIB 100 MG CAP PO SCH ×2 (10:47→22:04)
[2020-02-21] MEDS: LISINOPRIL 10 MG TABLET PO SCH (10:47)
[2020-02-21] MEDS: ALPRAZOLAM 1 MG TAB PO SCH (10:47)
[2020-02-21] MEDS: PANTOPRAZOLE SODIUM 40 MG TABLET.DR PO SCH (10:47)
[2020-02-21] MEDS: VANCOMYCIN 1.25 GM in SODIUM CHLORIDE 0.9% 250 ML IV SCH (10:48)
[2020-02-21 11:43] VITALS: BP 153/84
[2020-02-21] MEDS ORDERED: ACETAMINOPHEN-CODEINE 300/30MG TAB ONE (11:43)
[2020-02-21] MEDS ORDERED: HYDROCODONE/ACETAMINOPHEN 5/325 MG TAB ONE (11:49)
--- NOTE | 2020-02-21 13:24 | NUR ---
CM Note: [facility] approval CM spoke to Tabitha shafferAlexi [facility], pharmacy approved meds, verbalized family can register today. Pending chair time. CM spoke to pt's spouse Suzan, informed of pharmacy approval, instructed spouse to register today before 4pm, spouse requested copy of script, instructed spouse to call CM once in front of ED so that CM can give copy. Primary nurse aware. CM to cont to follow up.
[2020-02-21 16:08] VITALS: BP 133/70
[2020-02-21] MEDS: ALPRAZOLAM 1 MG TAB PO PRN (17:42)
[2020-02-21 19:49] VITALS: BP 140/77
[2020-02-21] MEDS ORDERED: VANCOMYCIN 1.25 GM in SODIUM CHLORIDE 0.9% 250 ML IV SCH (21:00)
[2020-02-21] MEDS: TRAZODONE HCL 50 MG TAB PO SCH (22:04)
[2020-02-21] MEDS: HYDROCODONE/ACETAMINOPHEN 5/325 MG TAB PO PRN (22:07)
[2020-02-21 23:34] VITALS: BP 165/79
[2020-02-22] MEDS: ALPRAZOLAM 1 MG TAB PO PRN ×3 (01:33→21:49)
[2020-02-22 03:11] VITALS: BP 143/87
[2020-02-22] MEDS ORDERED: MAGNESIUM 2GM PREMIX 50ML 50 ML IV SCH (04:45)
[2020-02-22] MEDS ORDERED: POTASSIUM CHLORIDE 10% ELIXIR 20 MEQ/15 ML UDCUP PO PRN (04:45)
[2020-02-22] MEDS ORDERED: LIDOCAINE HCL-MPF 1% 2ML VIAL IJ PRN (04:45)
[2020-02-22] MEDS ORDERED: POTASSIUM CHLORIDE 20 MEQ ERTAB PO PRN (04:45)
[2020-02-22] MEDS ORDERED: POTASSIUM CHLORIDE 20MEQ/100ML 100 ML IV PRN (04:45)
[2020-02-22] MEDS: MEROPENEM 500 MG VIAL IV SCH ×3 (05:36→21:40)
[2020-02-22 05:52] LABS: BASOPHILS % (AUTO) 0.6 % (0.0-5.0); EOSINOPHILS % (AUTO) 1.4 % (0.0-8.0); HEMATOCRIT 22.6 % (42-54); LYMPHOCYTES % (AUTO) 21.6 % (21.0-51.0); MEAN CORPUSCULAR HEMOGLOBIN 26.8 pg (27.0-33.0); MEAN CORPUSCULAR HGB CONC 33.2 g/dL (32.0-36.0); MEAN CORPUSCULAR VOLUME 80.7 fL (79-99); MONOCYTES % (AUTO) 6.2 % (3.0-13.0); NEUTROPHILS % (AUTO) 68.9 % (40.0-77.0); PLATELET COUNT (AUTO) 497 K/uL (130-400); RED CELL DISTRIBUTION WIDTH 15.5 % (11.0-15.5); WHITE BLOOD COUNT (AUTO) 7.1 K/uL (4.8-10.8)
[2020-02-22 06:07] LABS: MAGNESIUM 1.7 mg/dL (1.80-2.40); POTASSIUM 3.5 mmol/L (3.5-5.1)
[2020-02-22] MEDS: INSULIN HUMULIN R 100 UNIT/ML 3ML SQ SCH ×4 (07:30→21:00)
[2020-02-22 08:00] VITALS: BP 158/75
[2020-02-22] MEDS: FLUOXETINE HCL 20 MG CAPSULE PO SCH ×2 (08:27→21:38)
[2020-02-22] MEDS: LISINOPRIL 10 MG TABLET PO SCH (08:27)
[2020-02-22] MEDS: PANTOPRAZOLE SODIUM 40 MG TABLET.DR PO SCH (08:27)
[2020-02-22] MEDS: HYDROCODONE/ACETAMINOPHEN 5/325 MG TAB PO PRN (10:49)
[2020-02-22 12:00] VITALS: BP 181/91
--- NOTE | 2020-02-22 12:02 | NUR ---
CM Note: [facility] approval, pending chair time CM spoke to [facility] deena/[facility], pt has approval yesterday, spouse able to register. CM to call [phone] once pt ready to DC so that chair time can be scheduled. Primary nurse aware. CM to cont to follow up.
--- NOTE | 2020-02-22 12:56 | NUR ---
CM Note: [facility] chair time 02/22 @ 1030 AM. Primary nurse aware. Pending Dr Kumar jennings recommendations at this time. CM to cont to follow up.
--- NOTE | 2020-02-22 15:20 | NUR ---
CM Note: [facility] pending approval CM spoke to Suzan [phone] discussed Dr Heath's recommendation for HH woundcare, spouse agreeable, telephone consent obtained ZACHARIAH for any HH in [facility], witnessed by Johana RIVERA. Faxed order, clinicals, PT, covid result, confirmation received. Pt pending approval. Flagged purple script for Dr Heath to sign incase HH will need for HH. Primary nurse aware. CM to cont to follow up.
[2020-02-22 16:00] VITALS: BP 158/85
--- NOTE | 2020-02-22 16:56 | NUR ---
CM Note: [facility] approval. CM spoke to Cecelia shaffer/[facility], pt has approval, verbalized will see pt on Tuesday, will contact pt and spouse for appointment time. Primary nurse aware. CM to cont to follow up.
[2020-02-22 21:09] VITALS: BP 135/83
[2020-02-22] MEDS: TRAZODONE HCL 50 MG TAB PO SCH (21:38)
[2020-02-22] MEDS: FERROUS SULFATE 325 MG TABLET.DR PO SCH (21:38)
--- NOTE | 2020-02-23 | NUR ---
elevated bp 180/97 BP ON INITIAL CHECK. ON RECHECK BP WAS 168/86. ADMIN HYDRALAZINE PER SEP. WILL RECHECK BP AT 0030 FOR MEDICATION EFFECTIVENESS. PT REPORTS NO IGLESIAS OR DISTURBANCES. PT LAYING IN BED, NO DISTRESS. ENCOURAGED TO CALL FOR ASSISTANCE SPECIAL EDUCATION EDUCATIONAL ASSISTANT LIGHT- PT VERBALIZED UNDERSTANDING.
[2020-02-23] MEDS: HYDROCODONE/ACETAMINOPHEN 5/325 MG TAB PO PRN ×2 (00:06→10:47)
[2020-02-23 00:26] VITALS: BP_SYST 168; BP_SYST 180; BP_DIAS 86; BP_DIAS 97
[2020-02-23 00:48] VITALS: BP 151/81
[2020-02-23 03:31] VITALS: BP 106/49
[2020-02-23] MEDS: MEROPENEM 500 MG VIAL IV SCH ×2 (05:55→15:51)
[2020-02-23] MEDS: INSULIN HUMULIN R 100 UNIT/ML 3ML SQ SCH ×2 (06:32→11:30)
[2020-02-23 08:00] VITALS: BP 154/68
[2020-02-23] MEDS: FERROUS SULFATE 325 MG TABLET.DR PO SCH (08:11)
[2020-02-23] MEDS: LISINOPRIL 10 MG TABLET PO SCH (08:11)
[2020-02-23] MEDS: PANTOPRAZOLE SODIUM 40 MG TABLET.DR PO SCH (08:11)
[2020-02-23] MEDS: FLUOXETINE HCL 20 MG CAPSULE PO SCH (08:12)
[2020-02-23] MEDS: ALPRAZOLAM 1 MG TAB PO PRN (08:31)
[2020-02-23 08:44] LABS: HEMATOCRIT 25.6 % (42-54); MEAN CORPUSCULAR HEMOGLOBIN 26.8 pg (27.0-33.0); MEAN CORPUSCULAR HGB CONC 33.2 g/dL (32.0-36.0); MEAN CORPUSCULAR VOLUME 80.8 fL (79-99); RED BLOOD CELL COUNT(AUTO) 3.17 MIL/uL (4.50-6.20); RED CELL DISTRIBUTION WIDTH 15.8 % (11.0-15.5); WHITE BLOOD COUNT (AUTO) 7.8 K/uL (4.8-10.8)
[2020-02-23] MEDS ORDERED: VANCOMYCIN 1.25 GM in SODIUM CHLORIDE 0.9% 250 ML IV SCH (09:00)
--- NOTE | 2020-02-23 09:00 | NUR ---
spoke with baylee from aiu from [facility] regarding patient not being able to make appt due to paitent pending labs and still not discharged. per aiu patient rescheduled to tomorrow 1030
[2020-02-23 12:00] VITALS: BP 140/77
--- NOTE | 2020-02-23 13:12 | NUR ---
spoke with yaritza from [facility] to clarify appt schedule. per yaritza patient scheduled for 1030 tomorrow
[2020-02-23 16:00] VITALS: BP 114/70
--- NOTE | 2020-02-23 18:00 | NUR ---
report was given to ozzie from [facility]. discharge instruction provided to patient along with prescriptions for pain as well . dressings remain clean and dry . picc line dressing was changed using sterile technique.. informed pt on appt otm at 1030 for antibiotics
== END 2020-02-23 18:00 | disposition home health service (06) | DRG 474 ==
LOC: EDH 18:48 → EDHIP 20:01 → 3AH 21:55 → 3DH 02-15 18:41
PROVIDERS: ADMIT Internal Medicine; ATTEND Internal Medicine
PROC: 0Y6N0Z0 Detachment at Left Foot, Complete, Open Approach (ICD-10-PCS; 2020-02-15)
PROC: 0QTM0ZZ Resection of Left Tarsal, Open Approach (ICD-10-PCS; 2020-02-15)
PROC: 0QTM0ZZ Resection of Left Tarsal, Open Approach (ICD-10-PCS; 2020-02-15)
PROC: 05HY33Z Insertion of Infusion Device into Upper Vein, Percutaneous Approach (ICD-10-PCS; 2020-02-18)
PROC: 30233N1 Transfusion of Nonautologous Red Blood Cells into Peripheral Vein, Percutaneous Approach (ICD-10-PCS; principal; 2020-02-19)
DX: T87.44 Infection of amputation stump, left lower extremity (principal); A48.0 Gas gangrene; A41.01 Sepsis due to Methicillin susceptible Staphylococcus aureus; L03.116 Cellulitis of left lower limb; E11.52 Type 2 diabetes mellitus with diabetic peripheral angiopathy with gangrene; M86.8X7 Other osteomyelitis, ankle and foot; L02.612 Cutaneous abscess of left foot; G91.9 Hydrocephalus, unspecified; T87.81 Dehiscence of amputation stump; E11.9 Type 2 diabetes mellitus without complications; J44.9 Chronic obstructive pulmonary disease, unspecified; B35.1 Tinea unguium; B95.2 Enterococcus as the cause of diseases classified elsewhere; B96.1 Klebsiella pneumoniae [K. pneumoniae] as the cause of diseases classified elsewhere; B96.20 Unspecified Escherichia coli [E. coli] as the cause of diseases classified elsewhere; B95.61 Methicillin susceptible Staphylococcus aureus infection as the cause of diseases classified elsewhere; F06.4 Anxiety disorder due to known physiological condition; W18.30XA Fall on same level, unspecified, initial encounter; D64.9 Anemia, unspecified; E11.621 Type 2 diabetes mellitus with foot ulcer; N19 Unspecified kidney failure; M19.90 Unspecified osteoarthritis, unspecified site; L97.529 Non-pressure chronic ulcer of other part of left foot with unspecified severity; L97.519 Non-pressure chronic ulcer of other part of right foot with unspecified severity; L84 Corns and callosities; L60.2 Onychogryphosis; I10 Essential (primary) hypertension; G89.4 Chronic pain syndrome; F43.20 Adjustment disorder, unspecified; F41.1 Generalized anxiety disorder; F39 Unspecified mood [affective] disorder; E78.5 Hyperlipidemia, unspecified; E11.69 Type 2 diabetes mellitus with other specified complication; E66.01 Morbid (severe) obesity due to excess calories; G47.33 Obstructive sleep apnea (adult) (pediatric); Y83.5 Amputation of limb(s) as the cause of abnormal reaction of the patient, or of later complication, without mention of misadventure at the time of the procedure; Z91.19 Patient's noncompliance with other medical treatment and regimen; Z68.34 Body mass index [BMI] 34.0-34.9, adult; Z83.3 Family history of diabetes mellitus; Z82.79 Family history of other congenital malformations, deformations and chromosomal abnormalities; Z82.5 Family history of asthma and other chronic lower respiratory diseases; Z82.49 Family history of ischemic heart disease and other diseases of the circulatory system; Z82.3 Family history of stroke; Z82.0 Family history of epilepsy and other diseases of the nervous system; Z79.899 Other long term (current) drug therapy; Y93.89 Activity, other specified; Y92.89 Other specified places as the place of occurrence of the external cause; Y99.8 Other external cause status; Q90.9 Down syndrome, unspecified; Z89.432 Acquired absence of left foot; Z99.81 Dependence on supplemental oxygen; Z20.828 Contact with and (suspected) exposure to other viral communicable diseases
CPT/HCPCS: 36415; 36430; 70450; 71045; 72100; 73522; 73630; 73718; 80048; 80061; 80202; 82728; 82948; 83036; 83540; 83550; 83735; 85014; 85018; 85025; 85027; 85610; 85730; 86140; 86850; 86900; 86901; 86922; 87040; 87070; 87076; 87077; 87186; 87205; 87426; 88304; 88311; 93005; 93306; 93925; 97039; C1894; G0378; J0360; J1170; J1630; J1650; J1815; J2060; J2185; J2250; J2405; J2704; J3010; J3370; J3475; J3490; J7030; J7050; J7120; P9016; U0003

== ENCOUNTER 2020-09-08 14:08 | Emergency (ER) | payer OTHER ==
[~2020-09-08 14:08] MED LIST changes: -CEFU500T67 PO; -CELE100 PO; +HYDR-4068 PO; +LISI10TA24 PO; -LISI10TA7 PO; -PANT40TA55 PO; +TRAZ150 PO; -TRAZ300T2 PO
[2020-09-08 15:04] LABS: BASOPHILS % (AUTO) 0.6 % (0.0-5.0); EOSINOPHILS % (AUTO) 1.9 % (0.0-8.0); HEMATOCRIT 36.8 % (42-54); LYMPHOCYTES % (AUTO) 24.5 % (21.0-51.0); MEAN CORPUSCULAR HEMOGLOBIN 28.3 pg (27.0-33.0); MEAN CORPUSCULAR HGB CONC 34.2 g/dL (32.0-36.0); MEAN CORPUSCULAR VOLUME 82.7 fL (79-99); MONOCYTES % (AUTO) 9.2 % (3.0-13.0); NEUTROPHILS % (AUTO) 63.4 % (40.0-77.0); PLATELET COUNT (AUTO) 279 K/uL (130-400); RED BLOOD CELL COUNT(AUTO) 4.45 MIL/uL (4.50-6.20); RED CELL DISTRIBUTION WIDTH 14.7 % (11.0-15.5); WHITE BLOOD COUNT (AUTO) 6.9 K/uL (4.8-10.8)
[2020-09-08 15:16] LABS: POTASSIUM 3.7 mmol/L (3.5-5.1)
[2020-09-08] MEDS ORDERED: KETOROLAC TROMETHAMINE 30MG/ML ONE (15:19)
[2020-09-08 15:21] LABS: ALBUMIN 2.4 g/dL (3.5-5.0); BILIRUBIN,TOTAL 0.2 mg/dL (0.2-1.0); TOTAL PROTEIN, SERUM 6.6 g/dL (6.0-8.3)
[2020-09-08] MEDS ORDERED: MORPHINE SULFATE 4 MG/1ML SYG ONE (17:27)
[2020-09-08] MEDS ORDERED: ONDANSETRON ODT 4 MG TAB ONE (17:27)
== END 2020-09-08 18:29 | disposition home or self-care (01) ==
LOC: EDH 14:08
DX: L08.9 Local infection of the skin and subcutaneous tissue, unspecified (principal); I12.0 Hypertensive chronic kidney disease with stage 5 chronic kidney disease or end stage renal disease; E11.22 Type 2 diabetes mellitus with diabetic chronic kidney disease; N18.6 End stage renal disease; J44.9 Chronic obstructive pulmonary disease, unspecified; Z87.891 Personal history of nicotine dependence
CPT/HCPCS: 36415; 73562 ×2; 80053; 83605; 85025; 87040 ×2; 96374; 99284; J1885; J2270

== ENCOUNTER 2020-11-09 13:42 | Emergency (ER) | payer OTHER ==
[2020-11-09] MEDS ORDERED: CLINDAMYCIN HCL 150 MG CAP ONE (14:04)
[2020-11-09] MEDS ORDERED: HYDROCODONE/ACETAMINOPHEN 10/325 MG TAB ONE (14:05)
== END 2020-11-09 14:43 | disposition home or self-care (01) ==
LOC: EDH 13:42
DX: L01.00 Impetigo, unspecified (principal); E11.9 Type 2 diabetes mellitus without complications; I10 Essential (primary) hypertension; J44.9 Chronic obstructive pulmonary disease, unspecified

== ENCOUNTER 2021-01-27 14:43 | Emergency (ER) | payer OTHER ==
[~2021-01-27] VITALS: Ht 188 cm; Wt 120.2 kg
[2021-01-27 14:46] VITALS: BP 163/104
[2021-01-27] MEDS ORDERED: KETOROLAC 60 MG VIAL (30MG/ML) IM SCH (15:30)
[2021-01-27] MEDS ORDERED: LORAZEPAM 1 MG TABLET PO SCH (15:30)
[2021-01-27] MEDS ORDERED: ALPR0.25 PO (15:43)
[2021-01-27] MEDS ORDERED: ACET-2247 PO (15:43)
[2021-01-27 16:18] VITALS: BP 148/86
== END 2021-01-27 16:20 | disposition home or self-care (01) ==
LOC: EDH 14:43
DX: F41.9 Anxiety disorder, unspecified (principal); G89.18 Other acute postprocedural pain; M79.662 Pain in left lower leg; E11.9 Type 2 diabetes mellitus without complications; E78.00 Pure hypercholesterolemia, unspecified; I10 Essential (primary) hypertension; Z79.1 Long term (current) use of non-steroidal anti-inflammatories (NSAID); Z79.899 Other long term (current) drug therapy; Z79.84 Long term (current) use of oral hypoglycemic drugs; Z89.512 Acquired absence of left leg below knee; Z89.612 Acquired absence of left leg above knee
CPT/HCPCS: 96372; 99283; J1885

== ENCOUNTER 2021-02-19 16:05 | Emergency (ER) | payer OTHER ==
[~2021-02-19] VITALS: Ht 167.6 cm; Wt 127.9 kg
[~2021-02-19 16:05] MED LIST changes: +ACET-2247 PO; +ALPR0.25 PO
[2021-02-19 16:10] VITALS: BP 145/98
== END 2021-02-19 19:14 | disposition left against medical advice (07) ==
LOC: EDH 16:05
DX: R52 Pain, unspecified (principal); Z53.21 Procedure and treatment not carried out due to patient leaving prior to being seen by health care provider

== ENCOUNTER 2021-02-24 15:31 | Emergency (ER) | payer OTHER ==
[~2021-02-24] VITALS: Ht 185.4 cm; Wt 127.9 kg
[2021-02-24 15:33] VITALS: BP 151/80
[2021-02-24 15:34] VITALS: BP 151/80
[2021-02-24 15:55] LABS: BASOPHILS % (AUTO) 0.8 % (0.0-5.0); EOSINOPHILS % (AUTO) 3.4 % (0.0-8.0); HEMATOCRIT 35.3 % (42-54); MEAN CORPUSCULAR HEMOGLOBIN 30.5 pg (27.0-33.0); MEAN CORPUSCULAR HGB CONC 35.1 g/dL (32.0-36.0); MEAN CORPUSCULAR VOLUME 86.9 fL (79-99); MONOCYTES % (AUTO) 8.5 % (3.0-13.0); NEUTROPHILS % (AUTO) 63.7 % (40.0-77.0); PLATELET COUNT (AUTO) 208 K/uL (130-400); RED BLOOD CELL COUNT(AUTO) 4.06 MIL/uL (4.50-6.20); RED CELL DISTRIBUTION WIDTH 13.6 % (11.0-15.5); WHITE BLOOD COUNT (AUTO) 5.3 K/uL (4.8-10.8)
[2021-02-24 16:15] LABS: ALBUMIN 2.6 g/dL (3.5-5.0); BILIRUBIN,TOTAL 0.2 mg/dL (0.2-1.0); CREATININE 1.6 mg/dL (0.5-1.5); POTASSIUM 4.6 mmol/L (3.5-5.1); TOTAL PROTEIN, SERUM 6.9 g/dL (6.0-8.3)
[2021-02-24 16:40] LABS: APPEARANCE,URINE Clear (CLEAR); BILIRUBIN,URINE Negative (NEGATIVE); COLOR,URINE Yellow (YELLOW); GLUCOSE, URINE (UA) >=1000 mg/dL (NEGATIVE); KETONES,URINE Negative (NEGATIVE); LEUKOCYTE ESTERASE ,URINE Negative (NEGATIVE); NITRATE,URINE Negative (NEGATIVE); OCCULT BLOOD,URINE Negative (NEGATIVE); PROTEIN,URINE 300 mg/dL (NEGATIVE)
[2021-02-24 16:52] LABS: BACTERIA,URINE Rare /HPF (None Seen); MUCUS,URINE Few LPF (None Seen); RBC,URINE 0-1 /HPF (0-1); SQUAMOUS EPITHELIAL CELL,UR Few /HPF (0-2); WBC,URINE 0-1 /HPF (0-1)
[2021-02-24] MEDS ORDERED: 0.9%NACL 1000ML 1,000 ML IV ONE (17:00)
[2021-02-24 17:43] LABS: AMPHET/METH SCREEN,URINE NEGATIVE (NEGATIVE); BARBITURATE SCREEN, URINE NEGATIVE (NEGATIVE); BENZODIAZEPINES SCREEN,URINE POSITIVE (NEGATIVE); CANNABINOID SCREEN,URINE NEGATIVE (NEGATIVE); COCAINE SCREEN,URINE NEGATIVE (NEGATIVE); OPIATE SCREEN,URINE NEGATIVE (NEGATIVE); PHENCYCLIDINE SCREEN,URINE NEGATIVE (NEGATIVE)
[2021-02-24] MEDS ORDERED: INSULIN HUMULIN R 100 UNIT/ML 3ML IV ONE (18:00)
== END 2021-02-24 18:31 | disposition home or self-care (01) ==
LOC: EDH 15:31
DX: E10.65 Type 1 diabetes mellitus with hyperglycemia (principal); F20.9 Schizophrenia, unspecified; F31.9 Bipolar disorder, unspecified; F41.9 Anxiety disorder, unspecified; I10 Essential (primary) hypertension; Z79.4 Long term (current) use of insulin; Z79.899 Other long term (current) drug therapy; Z89.512 Acquired absence of left leg below knee; Z89.612 Acquired absence of left leg above knee
CPT/HCPCS: 36415; 80053; 80305; 81001; 82948; 84484; 85025; 93005; 99284; J7030

== ENCOUNTER 2021-05-15 15:00 | Emergency (ER) | payer OTHER, MEDICARE ==
[~2021-05-15] VITALS: Ht 185.4 cm; Wt 117.9 kg
[2021-05-15 15:02] VITALS: BP 120/70
[2021-05-15] MEDS ORDERED: ACET-2247 PO (15:26)
[2021-05-15] MEDS ORDERED: CEPH500B PO (15:26)
[2021-05-15] MEDS ORDERED: HYDROCODONE/ACETAMINOPHEN 10/325 MG TAB PO ONE (15:30)
[2021-05-15] MEDS ORDERED: CEPHALEXIN 500 MG CAPSULE PO ONE (15:30)
[2021-05-15] MEDS ORDERED: CEPHALEXIN 500 MG CAPSULE ONE (15:32)
[2021-05-15] MEDS ORDERED: HYDROCODONE/ACETAMINOPHEN 10/325 MG TAB ONE (15:32)
== END 2021-05-15 15:41 | disposition home or self-care (01) ==
LOC: EDH 15:00
DX: L03.312 Cellulitis of back [any part except buttock and flank] (principal); E10.65 Type 1 diabetes mellitus with hyperglycemia; F20.9 Schizophrenia, unspecified; F31.9 Bipolar disorder, unspecified; F41.9 Anxiety disorder, unspecified; I10 Essential (primary) hypertension; E66.9 Obesity, unspecified; Z79.84 Long term (current) use of oral hypoglycemic drugs; Z79.899 Other long term (current) drug therapy; Z89.512 Acquired absence of left leg below knee; Z89.612 Acquired absence of left leg above knee; Z88.8 Allergy status to other drugs, medicaments and biological substances; Z68.34 Body mass index [BMI] 34.0-34.9, adult

== ENCOUNTER 2022-09-30 18:46 | Emergency (ER) | payer MEDICARE ==
[~2022-09-30] VITALS: Ht 185.4 cm; Wt 108.9 kg
[~2022-09-30 18:46] MED LIST changes: -ACET-2247 PO; -ALPR0.25 PO; -ALPR1TAB7 PO; +AMLO5TAB4 PO; +DULO30CA2 PO; +EMPA25TA PO; -FLUO40CA49 PO; +GABA300C PO; -HYDR-4068 PO; -LIRA0.6P SQ; -LISI10TA24 PO; +LISI40TA9 PO; -OXCA600T18 PO; +SITA50TA PO; -TRAZ150 PO
[2022-09-30 19:59] LABS: BASOPHILS % (AUTO) 1.4 % (0.0-5.0); EOSINOPHILS % (AUTO) 1.2 % (0.0-8.0); HEMATOCRIT 42.4 % (42-54); LYMPHOCYTES % (AUTO) 28.5 % (21.0-51.0); MEAN CORPUSCULAR HEMOGLOBIN 30.5 pg (27.0-33.0); MEAN CORPUSCULAR HGB CONC 34.4 g/dL (32.0-36.0); MEAN CORPUSCULAR VOLUME 88.7 fL (79-99); MONOCYTES % (AUTO) 7.3 % (3.0-13.0); NEUTROPHILS % (AUTO) 60.9 % (40.0-77.0); PLATELET COUNT (AUTO) 263 K/uL (130-400); RED BLOOD CELL COUNT(AUTO) 4.78 MIL/uL (4.50-6.20); RED CELL DISTRIBUTION WIDTH 13.9 % (11.0-15.5); WHITE BLOOD COUNT (AUTO) 5.9 K/uL (4.8-10.8)
[2022-09-30 20:09] LABS: CREATININE 1.4 mg/dL (0.5-1.5); POTASSIUM 4.2 mmol/L (3.5-5.1)
[2022-09-30 20:14] LABS: ALBUMIN 2.2 g/dL (3.5-5.0); TOTAL PROTEIN, SERUM 6.8 g/dL (6.0-8.3)
[2022-09-30 20:34] LABS: APPEARANCE,URINE CLEAR (CLEAR); BILIRUBIN,URINE NEGATIVE (NEGATIVE); COLOR,URINE LIGHT-YELLOW (YELLOW); GLUCOSE, URINE (UA) >=1000 mg/dL (NEGATIVE); KETONES,URINE NEGATIVE (NEGATIVE); LEUKOCYTE ESTERASE ,URINE NEGATIVE Leu/uL (NEGATIVE); NITRATE,URINE NEGATIVE (NEGATIVE); PH,URINE 6.5 (5.0-8.0); PROTEIN,URINE 300 mg/dL (NEGATIVE); UROBILINOGEN,URINE 0.2 mg/dL (0.2-1.0)
[2022-09-30 20:43] LABS: RBC,URINE 0-1 /HPF (0-1)
[2022-09-30] MEDS ORDERED: 0.9%NACL 1000ML 2,000 ML IV ONE (21:00)
[2022-10-01] VITALS: BP 134/81
[2022-10-01 08:12] LABS: ABG BASE EXCESS -2.1 mmol/L (-2.0-3.0); ABG HCO3 23.3 mmol/L (21.0-28.0); ABG OXYGEN SATURATION 94.8 % (95.0-99.0); ABG PCO2 42 mmHg (35-48)
== END 2022-10-01 00:26 | disposition home or self-care (01) ==
LOC: EDH 18:46 → EEVIPCON 18:46 → EDH 10-01 00:26
DX: E11.65 Type 2 diabetes mellitus with hyperglycemia (principal); I10 Essential (primary) hypertension; E78.00 Pure hypercholesterolemia, unspecified; Z79.899 Other long term (current) drug therapy; Z79.84 Long term (current) use of oral hypoglycemic drugs; Z91.199 Patient's noncompliance with other medical treatment and regimen due to unspecified reason; Z89.511 Acquired absence of right leg below knee; Z89.512 Acquired absence of left leg below knee
CPT/HCPCS: 36415; 36600; 71045; 80053; 81001; 82140; 82550; 82803; 83605; 84484; 85025; 87040; 87088; 93005

== ENCOUNTER 2024-06-05 12:33 | Emergency (ER) | payer OTHER, MEDICARE ==
[~2024-06-05] VITALS: Ht 185.4 cm; Wt 121.1 kg
[~2024-06-05 12:33] MED LIST changes: +ACET-2079 PO; +ALPR2TAB7 PO; +ATOR40TA69 PO; +AUD NEB; +CLON0.1T PO; -DULO30CA2 PO; +DULO30CA52 PO; -EMPA25TA PO; -GABA300C PO; +HYDR100C2 PO; +IBUP-2784 PO; -LISI40TA9 PO; -METF-446 PO; +METO-409 PO; +MIRT-73 PO; +PANT40TA54 PO; +QUET100T34 PO; -SITA50TA PO
[2024-06-05 13:05] LABS: BASOPHILS # (AUTO) 0.11 K/uL (0.00-0.20); EOSINOPHILS # (AUTO) 0.17 K/uL (0.00-0.70); EOSINOPHILS % (AUTO) 1.6 % (0.0-8.0); HEMATOCRIT 36.3 % (42-54); IMMATURE GRANULOCYTE ABSOLUTE 0.03 K/uL (0-1); LYMPHOCYTES # (AUTO) 1.3 K/uL (1.0-4.8); LYMPHOCYTES % (AUTO) 12.7 % (21.0-51.0); MEAN CORPUSCULAR HEMOGLOBIN 29.2 pg (27.0-33.0); MEAN CORPUSCULAR HGB CONC 33.9 g/dL (32.0-36.0); MEAN CORPUSCULAR VOLUME 86.2 fL (79-99); MONOCYTES # (AUTO) 0.7 K/uL (0.1-1.0); MONOCYTES % (AUTO) 6.2 % (3.0-13.0); NEUTROPHILS # (AUTO) 8.3 K/uL (1.8-7.7); NEUTROPHILS % (AUTO) 78.2 % (40.0-77.0); PLATELET COUNT (AUTO) 261 K/uL (130-400); RED BLOOD CELL COUNT(AUTO) 4.21 MIL/uL (4.50-6.20); RED CELL DISTRIBUTION WIDTH 14.8 % (11.0-15.5); WHITE BLOOD COUNT (AUTO) 10.6 K/uL (4.8-10.8)
--- NOTE | 2024-06-05 13:10 | NUR ---
PT JUST NOW PLACED IN MY ED BED 9
[2024-06-05 13:11] LABS: POTASSIUM 4.1 mmol/L (3.5-5.1)
[2024-06-05 13:14] LABS: INR 0.95 (0.85-1.15); PROTHROMBIN TIME 10.3 SEC (9.6-11.6)
[2024-06-05 13:16] LABS: PARTIAL THROMBOPLASTIN TIME 29.5 SEC (26.3-35.5)
--- NOTE | 2024-06-05 13:23 | NUR ---
PER ULISES PA-DO CT W/OUT CONTRAST D/T LOW GFR
--- NOTE | 2024-06-05 13:28 | NUR ---
PT EN ROUTE TO CT SCAN VIA STRETCHER BY BINDING FOLDER MACHINE
--- NOTE | 2024-06-05 14:11 | HMCIMG ---
CT ABDOMEN/PELVIS W/O CONTRAST REASON: bloody stools hx of ischemic colitis COMPARISON: 05/11/2024 FINDINGS: Lung bases are clear. There are no focal liver lesions. There are normal-appearing kidneys.. Spleen and pancreas appear unremarkable. The gallbladder appears normal as well. Bowel loops appear unremarkable. This includes normal appearance of the appendix There is no evidence of free fluid or intraperitoneal air. There are no focal fluid collections. Aorta and retroperitoneum appear normal as do pelvic soft tissue structures. The anterior abdominal wall is intact. Osseous structures appear unremarkable. IMPRESSION: 1. Negative noncontrast CT abdomen and pelvis. 2. No evidence of colitis or other etiology of bloody stools. CT was performed with one or more following dose reduction techniques: automated exposure control, adjustment of the mA and kv according to patient's size, or use of a iterative reconstruction technique.
--- NOTE | 2024-06-05 14:30 | NUR ---
PT ASKING FOR WATER AND MORPHINE OR DILAUDID
--- NOTE | 2024-06-05 16:06 | ERN ---
General Chief Complaint: Bloody Stool Stated Complaint: BLOOD IN STOOL Time Seen by MD: 12:36 Time Seen by Midlevel: 12:36 Source: patient History of Present Illness Initial Comments Patient is a 59-year-old male with a past medical history of ischemic colitis presenting to the emergency department with diffuse abdominal pain. No fever, chills, nausea, vomiting, or any other symptoms reported at this time. According to the triage note patient had reported blood in his stools however when I examined him and obtain history he did not mention any blood in stool. He states his abdominal pain is unbearable and only morphine and Dilaudid work. No other concerns reported at this time. Patient states he wants to be admitted or if I am going to discharge him he wants to go straight to [facility]. Allergies: Coded Allergies: fentanyl (Unverified Allergy, Unknown, 05/07/24) gadobenic acid (Unverified Adverse Reaction, Mild, VOMITTING, 01/16/19) Home Meds Active Scripts Amlodipine Besylate (Norvasc 5Mg Tab) 5 Mg Tablet, 10 MG PO DAILY, #30 TAB 0 Refills Prov:VJ SANDRA MD 08/28/22 Reported Medications Albuterol Sulfate (Albuterol Sulfate) 2.5 Mg/0.5 Ml Vial.neb, 1 VIAL NEB Q6H for shortness of breath for 30 Days, #60 ML 0 Refills 05/07/24 Mirtazapine (Mirtazapine) 30 Mg Tab.rapdis, 1 TAB PO HS for 30 Days, #30 TAB 0 Refills 05/07/24 Hydroxyzine Pamoate (Hydroxyzine Pamoate) 100 Mg Capsule, 1 CAP PO HS for 30 Days, #30 CAP 0 Refills 05/07/24 Quetiapine Fumarate (Quetiapine Fumarate) 100 Mg Tablet, 100 MG PO TID, TAB 05/07/24 Clonidine HCl (Clonidine HCl) 0.1 Mg Tablet, 0.1 MG PO TID, TAB 05/07/24 Atorvastatin Calcium (LIPITOR) 40 Mg Tablet, 1 TAB PO DAILY for 30 Days, #30 TAB 0 Refills 05/07/24 Duloxetine HCl (Duloxetine HCl) 30 Mg Capsule.dr, 1 CAP PO DAILY for 30 Days, # 30 CAP 0 Refills 05/07/24 Pantoprazole Sodium (Pantoprazole Sodium) 40 Mg Tablet.dr, 1 TAB PO DAILY for 30 Days, #30 TAB 0 Refills 05/07/24 Acetaminophen with Codeine (Acetaminophen-Cod #3 Tablet) 300 Mg-30 Mg Tablet, 1 TAB PO TIDP PRN for pain for 30 Days, #90 TAB 0 Refills 05/07/24 Ibuprofen (Ibuprofen 200 mg Tablet) 200 Mg Tablet, 2 TAB PO QID for pain or fever for 5 Days, #40 TAB 0 Refills 05/07/24 Metoprolol Succinate (Metoprolol Succinate) 100 Mg Tab.er.24h, 1 TAB PO DAILY for blood pressure 10/22/22 Alprazolam (Alprazolam) 2 Mg Tablet, 1 TAB PO TID for anxiety 10/22/22 Past Medical History Past Medical History: Diabetes-Type II, Hypertension, LA, Stroke, Vascular Disease Medical History Other: PVD/PAD, DIABETIC COMPLICATIONS, BROKEN BACK, BULGING DISCS, ULC COLITIS Past Surgical History: Other Surgical History Other: BILATERAL AKA Social History Social History: Drugs, Lives with family ROS Dictation CONSTITUTIONAL: Negative except for HPI HEAD/FACE: Negative except for HPI EENT: Negative except for HPI RESPIRATORY: Negative except for HPI GASTROINTESTINAL/ABDOMINAL: Negative except for HPI GENITOURINARY: Negative except for HPI MUSCULOSKELETAL: Negative except for HPI INTEGUMENTARY: Negative except for HPI NEUROLOGICAL/PSYCH: Negative except for HPI HEMATOLOGIC/LYMPHATIC: Negative except for HPI All Systems Negative, Except as noted above. 13 point review of systems assessed and all negative except for above. Physical Exam Physical Exam Dictation Vital Signs reviewed General Appearance: Alert, oriented x 3, no acute distress, well developed, nourished. Head and Face: non-traumatic. Eyes: PERRL, pink conjunctivas, eyelid no trauma, anterior chamber with arcus senilis. Ears: Pinnas intact and no signs of trauma or erythema ear canals clear and no discharge TM no erythema Nose: No discharge, no bleeding. Oropharynx: Mouth normal, tongue pink, pharynx clear,no erythema, tonsils no exudates, no abscesses noted, mucous membrane moist Neck: Supple, non-tender, no thyromegaly, no masses, no JVD, no bruits Breast:Deferred Chest:No tenderness, no crepitus, no paradoxical movement, no retractions Lungs:Clear, well-ventilated, symmetric, no rales, no wheezing, no rhonchi, no stridor, good breath sounds bilaterally Heart: Regular rate, regular rhythm, no murmur, no gallops Vascular: no peripheral edema, Abdomen: Soft, positive bowel sounds, nondistended, no guarding, nontender, no rebound, no masses no hepatomegaly, no splenomegaly, no Hong's sign, no hernias. Rectal: Deferred Genital: Deferred Neurological: Normal speech, motor function intact, sensory function intact Musculoskeletal: Neck nontender, full range of motion, back nontender, full range of motion, Extremities: nontender, full range of motion Skin: Color pink, dry, no turgor, no rash, no lacerations, no abrasions, no contusions. Lymphatic: Deferred Results Laboratory and Microbiology Lab and Micro Result Laboratory Tests Test 06/05/24 12:55 White Blood Count 10.6 K/uL (4.8-10.8) Red Blood Count 4.21 MIL/uL (4.50-6.20) L Hemoglobin 12.3 g/dL (14.0-18.0) L Hematocrit 36.3 % (42-54) L Mean Corpuscular Volume 86.2 fL (79-99) Mean Corpuscular Hemoglobin 29.2 pg (27.0-33.0) Mean Corpuscular Hemoglobin Concent 33.9 g/dL (32.0-36.0) Red Cell Distribution Width 14.8 % (11.0-15.5) Platelet Count 261 K/uL (130-400) Mean Platelet Volume 10.4 fL (7.5-10.5) Immature Granulocyte % (Auto) 0.3 % (0-1) Neutrophils (%) (Auto) 78.2 % (40.0-77.0) H Lymphocytes (%) (Auto) 12.7 % (21.0-51.0) L Monocytes (%) (Auto) 6.2 % (3.0-13.0) Eosinophils (%) (Auto) 1.6 % (0.0-8.0) Basophils (%) (Auto) 1.0 % (0.0-5.0) Neutrophils # (Auto) 8.3 K/uL (1.8-7.7) H Lymphocytes # (Auto) 1.3 K/uL (1.0-4.8) Monocytes # (Auto) 0.7 K/uL (0.1-1.0) Eosinophils # (Auto) 0.17 K/uL (0.00-0.70) Basophils # (Auto) 0.11 K/uL (0.00-0.20) Absolute Immature Granulocyte (auto 0.03 K/uL (0-1) Nucleated Red Blood Cells 0.0 % (0.0-0.19) Prothrombin Time 10.3 SEC (9.6-11.6) Prothromb Time International Ratio 0.95 (0.85-1.15) Activated Partial Thromboplast Time 29.5 SEC (26.3-35.5) Sodium Level 132 mmol/L (136-145) L Potassium Level 4.1 mmol/L (3.5-5.1) Chloride Level 100 mmol/L (101-111) L Carbon Dioxide Level 28 mmol/L (21-32) Blood Urea Nitrogen 28 mg/dL (7-18) H Creatinine 2.0 mg/dL (0.5-1.3) H Glomerular Filtration Rate Calc 38 mL/min (>90) Random Glucose 232 mg/dL (70-105) H Lactic Acid Level 1.6 mmol/L (0.8-2.5) Total Calcium 8.4 mg/dL (8.5-10.1) L Troponin I High Sensitivity 32 ng/L (4-75) Labs Reviewed?: Yes MDM MDM: Patient is a 59-year-old male with a past medical history of ischemic colitis presenting to the emergency department with diffuse abdominal pain. No fever, chills, nausea, vomiting, or any other symptoms reported at this time. According to the triage note patient had reported blood in his stools however when I examined him and obtain history he did not mention any blood in stool. He states his abdominal pain is unbearable and only morphine and Dilaudid work. No other concerns reported at this time. Patient states he wants to be admitted or if I am going to discharge him he wants to go straight to [facility]. Initial vital signs are remarkable for a temperature of 98.2. Heart rate of 103 beats per minute. A blood pressure of 124/85. O2 saturation is 96% on room air. There is diffuse abdominal tenderness however patient screams in pain before even touch his abdomen. He is repeatedly asking for morphine or Dilaudid. His CBC shows a normal white blood cell count of 10.6. His hemoglobin is stable at 12.3. His chemistries reveal a sodium of 132 Na chloride of 100. His creatinine is 2.0 with a BUN of 28. Patient does have a history of chronic kidney disease. His lactic acid is normal at 1.6. His cardiac enzymes are negative. CT scan of the abdomen and pelvis without contrast was obtained given his history of ischemic colitis and is clinical presentation of abdominal pain. His CT scan is negative for any acute intra- abdominal pathology. There was no evidence of colitis or other etiology of bloody stools. Patient was given 2 mg of morphine IV and reports feeling significantly better. Given is stable labs and negative CT scan of the abdomen/pelvis patient will be discharged home for outpatient management. Differential diagnosis: Colitis, small-bowel obstruction, diverticulitis, drug- seeking There are no social concerns with this patient. Prescription drug management Prescriptions will include: None Medical management and examination interpretation discussions were had by me with other qualified healthcare professionals as indicated for the patient's care. ED Course Orders Procedure Category Date Status Time Cbc With Differential LAB 06/05/24 Complete 12:37 Basic Metabolic Panel LAB 06/05/24 Complete 12:37 Pt And Ptt LAB 06/05/24 Complete 12:37 Type And Screen BBK 06/05/24 Complete 12:37 Troponin I High LAB 06/05/24 Complete Sensitivity 12:37 Lactic Acid LAB 06/05/24 Complete 12:58 Ct Abdomen/Pelvis W/O CT 06/05/24 Resulted Contrast 12:58 Morphine 2mg Syg PHA 06/05/24 Complete (Morphine 2mg Syg) 16:30 Ondansetron 4mg Inj PHA 06/05/24 Complete (Zofran 4mg Inj) 16:30 Current Medications Medications (Trade) Dose Ordered Sig/Richard Route PRN Reason Start Time Stop Time Status Last Admin Dose Admin Morphine Sulfate (morPHINE 2MG SYG) 2 mg ONCE ONCE IVP 06/05/24 16:30 06/05/24 16:31 DC 06/05/24 16:21 Ondansetron HCl (zoFRAN 4MG INJ) 4 mg ONCE ONCE IVP 06/05/24 16:30 06/05/24 16:31 DC 06/05/24 16:21 Vital Signs Date Time Temp Pulse Resp B/P (MAP) Pulse Ox O2 Delivery O2 Flow Rate FiO2 06/05/24 16:15 97.9 102 18 159/93 100 Room Air* 0 06/05/24 13:21 98.2 96 18 185/89 99 Room Air* 0 06/05/24 12:35 103 18 124/85 96 Room Air 0 [facility] [address] [place] [address] [id number] IMAGING REPORT Signed PATIENT: JONG MONROY JR MR#: [id number] : 1965 SEX: M AGE: 59 LOCATION: [facility] ORDER [id number] STATUS: [facility] REPORT#: [id number] SERVICE 1258 REASON: bloody stools hx of ischemic colitis ORDERING PHYSICIAN: ULISES ZAVALA PROCEDURE: ABD PEL WO - CT ABDOMEN/PELVIS W/O CONTRAST CT ABDOMEN/PELVIS W/O CONTRAST REASON: bloody stools hx of ischemic colitis COMPARISON: 05/11/2024 FINDINGS: Lung bases are clear. There are no focal liver lesions. There are normal-appearing kidneys.. Spleen and pancreas appear unremarkable. The gallbladder appears normal as well. Bowel loops appear unremarkable. This includes normal appearance of the appendix There is no evidence of free fluid or intraperitoneal air. There are no focal fluid collections. Aorta and retroperitoneum appear normal as do pelvic soft tissue structures. The anterior abdominal wall is intact. Osseous structures appear unremarkable. IMPRESSION: 1. Negative noncontrast CT abdomen and pelvis. 2. No evidence of colitis or other etiology of bloody stools. CT was performed with one or more following dose reduction techniques: automated exposure control, adjustment of the mA and kv according to patient's size, or use of a iterative reconstruction technique. DICTATED BY: NING APODACA MD DATE: 06/05/241406 ELECTRONICALLY SIGNED BY: NING APODACA MD DATE: 06/05/24 1411 DX & DISP Disposition: Discharge Departure Impression: Primary Impression: Diffuse abdominal pain Additional Impressions: History of diabetes mellitus, Chronic anemia, Chronic kidney disease Condition: Stable Additional Instructions: Your blood work today is stable. Your CT scan of the abdomen/pelvis is negative for any acute pathology. There was no evidence of a GI bleed, kidney infection, or any other acute abnormality. You will need to follow up with your primary care doctor so you can set up outpatient rehab. Return to the ER for any new or worsening symptoms. Referrals: ALENA JACOBS DO (PCP) I have reviewed the case, and I agree with, Diagnosis and Plan ULISES ZAVALA Jun 05, 2024 16:06 FILIPPO VILLASENOR DO Jun 07, 2024 11:00
[2024-06-05 16:15] VITALS: BP 159/93; PULSE 102; RESP 18; TEMP 97.9; O2SAT 100
[2024-06-05] MEDS: morPHINE 2 MG SYG IVP ONE (16:21)
[2024-06-05] MEDS: ondanSETRON 4MG INJ IVP ONE (16:21)
--- NOTE | 2024-06-05 16:57 | NUR ---
VICKI DAUGHTER CALLED AND SHE WILL HAVE SOMEONE TO COME AND MOLD INJECTOR THE PT. HE WILL WAIT IN ROOM UNTIL FAMILY ARRIVES
== END 2024-06-05 17:24 | disposition home or self-care (01) ==
LOC: EDH 12:33
DX: R10.84 Generalized abdominal pain (principal); I12.9 Hypertensive chronic kidney disease with stage 1 through stage 4 chronic kidney disease, or unspecified chronic kidney disease; E11.22 Type 2 diabetes mellitus with diabetic chronic kidney disease; D63.1 Anemia in chronic kidney disease; N18.9 Chronic kidney disease, unspecified; E11.51 Type 2 diabetes mellitus with diabetic peripheral angiopathy without gangrene; Z79.899 Other long term (current) drug therapy; Z88.5 Allergy status to narcotic agent; Z89.611 Acquired absence of right leg above knee; Z89.612 Acquired absence of left leg above knee; Z98.890 Other specified postprocedural states
CPT/HCPCS: 99285; 74176; 96374; 96375; 84484; 80048; 85025; 85610; 85730; 86850; 86900; 86901; 83605; 36415; J2270; J2405